=== PATIENT | female | born 1960 | race Caucasian/White ===

== ENCOUNTER 2017-01-30 15:16 | Observation (INO) ==
[2017-01-30 15:49] LABS: Basophils % 0.3 %; Eosinophils # 0.2 K/mcL (0.0-0.6); Hematocrit 41.6 % (35.3-44.9); Hemoglobin 14.4 g/dL (11.5-15.4); Immature Granulocytes % 0.8 % (0-4); Lymphocytes # 2.8 K/mcL (0.6-4.6); Lymphocytes % 31.8 %; Mean Corpuscular HGB Conc 34.6 g/dL (31.6-35.5); Mean Corpuscular Hemoglobin 28.9 pg (28.0-33.3); Mean Corpuscular Volume 83.4 fL (83.0-100.0); Mean Platelet Volume 10.9 fL (9.4-12.4); Monocytes # 0.9 K/mcL (0.0-1.3); Monocytes % 10.2 %; Neutrophils # 4.8 K/mcL (1.6-8.9); Platelet Count 274 K/mcL (140-400); Red Blood Count 4.99 M/mcL (3.82-4.97); Red Cell Distribution Width 13.2 % (11.5-14.5); Segmented Neutrophils % 54.9 %
[2017-01-30 15:54] LABS: Prothrombin Time 10.5 Seconds (9.4-12.1)
[2017-01-30 15:57] LABS: Activated Partial Thrombo Time 28.1 Seconds (26.0-36.0)
[2017-01-30 16:01] LABS: BUN/Creatinine Ratio 19 (6-26); Blood Urea Nitrogen 16 mg/dL (7-20); Calcium 9.2 mg/dL (8.6-10.8); Carbon Dioxide 27 mEq/L (19-29); Chloride 97 mEq/L (98-109); Glucose 102 mg/dL (70-99); Osmolality,Calculated 281 (280-300); Potassium 3.6 mEq/L (3.5-4.5); Sodium 135 mEq/L (136-145); eGFR For African Americans > 60 (> 60); eGFR For Non-African Americans > 60 (> 60)
--- NOTE | 2017-01-30 16:26 | Emergency Department Note ---
Disposition Clinical Impression: Chest pain Qualifiers: Chest pain type: unspecified Qualified Code(s): R07.9 - Chest pain, unspecified Disposition: Admitted As Inpatient Condition: Fair Referrals: John Gonsales MD [Primary Care Provider] - Forms: ED Satisfaction Letter Time of Disposition: 18:15 Chest Pain HPI - General Chief Complaint: ED Chest Pain Stated Complaint: Chest pain/ZURI Time Seen by Provider: 01/30/17 15:36 Source: patient Limitations: no limitations Vital Signs Reviewed: Yes Nursing Notes Reviewed: Yes - History of Present Illness HPI Narrative: Presents with chest pain which started at 2:30 and began over times been of 3 minutes while she was at home and sharp and squeezing with radiation to the anterior neck. Minimal radiation also to the back. Did have sensation of left arm numbness which was transient. No numbness of the leg or face, slurred speech, facial droop or confusion. She did have dyspnea but no diaphoresis. No pleuritic aspect. No pain or swelling of the lower extremities. Social history: No smoking, alcohol, drugs. Family history: Positive for heart disease with her mother with coronary disease as well as cardiomegaly Severity scale (1-10): 3 - Related Data Home Medications Medication Instructions Recorded Confirmed ARIPiprazole [Abilify] 2 mg PO HS 06/06/16 01/30/17 Albuterol Sulfate [Proair Hfa] 2 puff IH Q6H PRN 06/06/16 01/30/17 FLUoxetine HCl [Prozac] 40 mg PO QAM 06/06/16 01/30/17 Fluticasone Propionate Nasal 2 spray NS DAILY PRN 06/06/16 01/30/17 [Flonase] Furosemide [Lasix] 40 mg PO DAILY 06/06/16 01/30/17 Levothyroxine [Synthroid] 88 mcg PO QAM 06/06/16 01/30/17 Loratadine [Claritin] 10 mg PO DAILY 06/06/16 01/30/17 Montelukast [Singulair] 10 mg PO HS 06/06/16 01/30/17 Pantoprazole Sodium [Protonix] 40 mg PO DAILY 06/06/16 01/30/17 Potassium Chloride [K-Tab ER] 20 meq PO DAILY 06/06/16 01/30/17 clonazePAM [Klonopin] 1 mg PO DAILY PRN 06/06/16 01/30/17 BuPROPion SR (12 HR) [Wellbutrin 150 mg PO DAILY 01/30/17 01/30/17 SR] Carvedilol 12.5 mg PO BID 01/30/17 01/30/17 Losartan/Hydrochlorothiazide 1 each PO DAILY 01/30/17 01/30/17 [Hyzaar 100-25 Tablet] Allergies Allergy/AdvReac Type Severity Reaction Status Date / Time azithromycin [From Zithromax] Allergy Rash Verified 06/06/16 08:57 Penicillins [PCN] Allergy Rash Verified 06/06/16 08:57 Tetracycline Allergy Rash Verified 06/06/16 08:57 Review of Systems: Constitutional: No fever Vision: No blurred vision ENT: No rhinorrhea Respiratory: No cough Allergic: No allergies : No blood in urine GI: No blood in stool Hematologic: No bruising Dermatologic: No skin rash Musculoskeletal: No pain in the extremities Neuro: No numbness of the extremities Chest Pain PMH - Past Medical History Medical history: Reports: GERD, hypertension Psychiatric history: Reports: depression [employer]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 - Social History Smoking Status: Never smoker Alcohol use: Reports: occasionally Drug use: Reports: none Physical Exam CONSTITUTIONAL: Well-appearing; well-nourished; A&O X 3, in no apparent distress HEAD: Normocephalic; atraumatic EYES: PERRL, no scleral icterus NOSE: The nose is normal in appearance without rhinorrhea NECK: No JVD or distended neck veins RESP: Normal chest excursion with respiration; breath sounds clear and equal bilaterally; no wheezes, rhonchi, or rales CARD: Regular rhythm, without murmurs, rub or gallop ABD: Non-distended; non-tender, soft, without rigidity, rebound or guarding,no pulsatile mass CHEST: No pain with palpation SKIN: Normal for age and race; warm and dry without diaphoresis ; no apparent lesions EXTREMITIES: Pulses are 2 plus and equal times 4 extremities, no peripheral edema or calf muscle pain NEUROLOGICAL: Patient is alert and oriented times three. Cranial nerves III- XII are intact. Sensory and motor functions are intact. Strength is 5/5 for flexion and extension in all 4 extremities. Patellar DTRS are equal and intact. Finger to nose testing is equal and normal bilaterally. - General Limitations: no limitations General appearance: alert, in no apparent distress Course Vital Signs Temperature 98.5 F 01/30/17 15:17 Pulse Rate 91 01/30/17 15:17 Respiratory Rate 18 01/30/17 15:17 Blood Pressure 190/98 01/30/17 15:17 O2 Sat by Pulse Oximetry 98 01/30/17 15:17 Temperature 98.5 F 01/30/17 15:17 Pulse Rate 81 01/30/17 16:51 Respiratory Rate 18 01/30/17 16:51 Blood Pressure 124/85 01/30/17 16:51 O2 Sat by Pulse Oximetry 98 01/30/17 16:51 Oxygen Delivery Oxygen Delivery Room Air Chest Pain - MDM Narrative Medical decision making narrative: I did review the patient's initial labs which are non-concerning. She did have the arm numbness as well as some radiation to the back and a CT scan will be done to further evaluate for possible aortic dissection. The patient is hypertensive at this time and is not hypotensive. I did review her EKG showing normal sinus rhythm with a rate of 86 without acute ischemic change or evidence of arrhythmia. Patient will be watched closely here in the emergency department and admitted as she does have short duration of symptoms which historically or very concerning and the troponin may not have had time to increase. [id number] I did review the patient's lab results which are negative as well as chest x- ray and the CTA which are both read by the radiologist as being negative and the patient will be admitted. I did speak with the hospitalist who accepts the patient for admission. Concern is recent onset of chest pain and inability to exclude myocardial infarction based on the ED evaluation. She does have a very concerning story also. 1814 - Medical Records Medical records reviewed: Yes I reviewed the patient's medical records. - Lab Data Lab results reviewed: Yes I reviewed the patient's lab results. Result diagrams: 01/30/17 15:40 01/30/17 15:40 Lab Results 01/30/17 01/30/17 01/30/17 Range/Units 15:40 15:40 15:40 WBC 8.7 (4.3-11.1) K/mcL RBC 4.99 H (3.82-4.97) M/mcL Hgb 14.4 (11.5-15.4) g/dL Hct 41.6 (35.3-44.9) % MCV 83.4 (83.0-100.0) fL MCH 28.9 (28.0-33.3) pg MCHC 34.6 (31.6-35.5) g/dL RDW 13.2 (11.5-14.5) % Plt Count 274 (140-400) K/mcL MPV 10.9 (9.4-12.4) fL Immature Gran % 0.8 (0-4) % Seg Neutrophils % 54.9 % Lymphocytes % 31.8 % Monocytes % 10.2 % Eosinophils % 2.0 % Basophils % 0.3 % Neutrophils # 4.8 (1.6-8.9) K/mcL Lymphocytes # 2.8 (0.6-4.6) K/mcL Monocytes # 0.9 (0.0-1.3) K/mcL Eosinophils # 0.2 (0.0-0.6) K/mcL Basophils # 0.0 (0.0-0.2) K/mcL PT 10.5 (9.4-12.1) Seconds INR 1.0 APTT 28.1 (26.0-36.0) Seconds Sodium 135 L (136-145) mEq/L Potassium 3.6 (3.5-4.5) mEq/L Chloride 97 L (98-109) mEq/L Carbon Dioxide 27 (19-29) mEq/L BUN 16 (7-20) mg/dL Creatinine 0.86 (0.57-1.11) mg/dL Est GFR ( Amer) > 60 (> 60) Est GFR (Non-Af Amer) > 60 (> 60) BUN/Creatinine Ratio 19 (6-26) Glucose 102 H (70-99) mg/dL Calculated Osmolality 281 (280-300) Calcium 9.2 (8.6-10.8) mg/dL Troponin I (0-0.03) ng/mL 01/30/17 Range/Units 15:40 WBC (4.3-11.1) K/mcL RBC (3.82-4.97) M/mcL Hgb (11.5-15.4) g/dL Hct (35.3-44.9) % MCV (83.0-100.0) fL MCH (28.0-33.3) pg MCHC (31.6-35.5) g/dL RDW (11.5-14.5) % Plt Count (140-400) K/mcL MPV (9.4-12.4) fL Immature Gran % (0-4) % Seg Neutrophils % % Lymphocytes % % Monocytes % % Eosinophils % % Basophils % % Neutrophils # (1.6-8.9) K/mcL Lymphocytes # (0.6-4.6) K/mcL Monocytes # (0.0-1.3) K/mcL Eosinophils # (0.0-0.6) K/mcL Basophils # (0.0-0.2) K/mcL PT (9.4-12.1) Seconds INR APTT (26.0-36.0) Seconds Sodium (136-145) mEq/L Potassium (3.5-4.5) mEq/L Chloride (98-109) mEq/L Carbon Dioxide (19-29) mEq/L BUN (7-20) mg/dL Creatinine (0.57-1.11) mg/dL Est GFR ( Amer) (> 60) Est GFR (Non-Af Amer) (> 60) BUN/Creatinine Ratio (6-26) Glucose (70-99) mg/dL Calculated Osmolality (280-300) Calcium (8.6-10.8) mg/dL Troponin I 0.00 (0-0.03) ng/mL - Radiology Data Radiology results reviewed: Yes I reviewed the patient's radiology results.
[2017-01-30] MEDS ORDERED: clonazePAM 1 MG TABLET PO PRN (20:18)
[2017-01-30] MEDS ORDERED: Fluticasone Propionate Nasal 50 MCG/SPRAY BOTTLE NS PRN (20:18)
[2017-01-30] MEDS ORDERED: Ondansetron 4 MG/2 ML VIAL IVP PRN (20:21)
[2017-01-30] MEDS ORDERED: Naloxone 0.4 MG/ML INJ IVP PRN (20:21)
[2017-01-30] MEDS ORDERED: *HR* Morphine 2 MG/ML SYRINGE IVP PRN (20:21)
[2017-01-30] MEDS ORDERED: Nitroglycerin 0.4 MG TAB.SUBL SL PRN (20:22)
--- NOTE | 2017-01-30 20:27 | Internal Med History&Physical ---
Date of Encounter: 01/30/17 Time of Encounter: 20:24 Assessment and Plan (1) Chest pain Current visit: Yes Status: Acute Order aspirin, monitor troponins, telemetry Echocardiogram Hold carvedilol for exercise a stress test in the past, she says that she did not want to have the pharmacological stress test. Consider cardiology consult if positive findings Morphine and nitroglycerin for pain, check lipid panel Omeprazole for GI prophylaxis and Lovenox for DVT prophylaxis. The patient will be admitted for observation. Full code. Time spent on this admission 40 minutes Qualifiers: Chest pain type: unspecified Qualified Code(s): R07.9 - Chest pain, unspecified (2) Depression Current visit: Yes Status: Acute Continue home meds Qualifiers: Depression Type: unspecified Qualified Code(s): F32.9 - Major depressive disorder, single episode, unspecified (3) Anxiety Current visit: Yes Status: Acute (4) GERD (gastroesophageal reflux disease) Current visit: Yes Status: Acute PPI Qualifiers: Esophagitis presence: without esophagitis Qualified Code(s): K21.9 - Gastro -esophageal reflux disease without esophagitis (5) Hypertension Current visit: Yes Status: Acute Accelerated hypertension Continue losartan, hydrochlorothiazide Add hydralazine IV as needed Qualifiers: Hypertension type: essential hypertension Qualified Code(s): I10 - Essential (primary) hypertension Internal Medicine - H&P: HPI Chief complaint: Chest pain Admitted From: Emergency Dept History of present illness: Ms. Granger is a 56 year old female with a past medical history of hypertension, anxiety, depression who came to the emergency room complaining of chest pain that started earlier at 2:30 PM and lasted for about an hour. He was described as 7 out of 10 in intensity sharp and squeezing like radiating to the neck and the back. CT angiogram of the chest was performed and did not show any dissection. Sodium is 135, troponins and electrocardiogram are unremarkable. Blood pressure was 190/98 she says that she has been compliant with her blood pressure medication. Still has some discomfort. Denies any other complaints Past Med Surg Social Fam HX - Past Medical History Medical history: GERD, hypertension, other (Anxiety, carpal tunnel, colonic polyps, hypothyroidism) Psychiatric history: depression - Past Surgical History Surgical History: cholecystectomy, other (Tubal ligation) - Social History Smoking Status: Never smoker Smokeless Tobacco Status: No Alcohol use: occasionally Drug use: none - Family History Father Hx Family Cancer: Yes (lung) Mother Hx Family Cardiac Disorders: Yes (HTN, cardiomegaly) - Additional Family History Additional family history: Father with lung cancer, sister with hypertension and CVA, mother with diabetes breast cancer and first myocardial infarction at the age of 50 Internal Medicine - H&P: Meds ARIPiprazole [Abilify] 2 mg PO HS 06/06/16 [History] Albuterol Sulfate [Proair Hfa] 2 puff IH Q6H PRN 06/06/16 [History] FLUoxetine HCl [Prozac] 40 mg PO QAM 06/06/16 [History] Fluticasone Propionate Nasal [Flonase] 2 spray NS DAILY PRN 06/06/16 [History] Furosemide [Lasix] 40 mg PO DAILY 06/06/16 [History] Levothyroxine [Synthroid] 88 mcg PO QAM 06/06/16 [History] Loratadine [Claritin] 10 mg PO DAILY 06/06/16 [History] Montelukast [Singulair] 10 mg PO HS 06/06/16 [History] Pantoprazole Sodium [Protonix] 40 mg PO DAILY 06/06/16 [History] Potassium Chloride [K-Tab ER] 20 meq PO DAILY 06/06/16 [History] clonazePAM [Klonopin] 1 mg PO DAILY PRN 06/06/16 [History] BuPROPion SR (12 HR) [Wellbutrin SR] 150 mg PO DAILY 01/30/17 [History] Carvedilol 12.5 mg PO BID 01/30/17 [History] Losartan/Hydrochlorothiazide [Hyzaar 100-25 Tablet] 1 each PO DAILY 01/30/17 [ History] 3 Allergy/AdvReac Type Severity Reaction Status Date / Time azithromycin [From Zithromax] Allergy Rash Verified 06/06/16 08:57 Penicillins [PCN] Allergy Rash Verified 06/06/16 08:57 Tetracycline Allergy Rash Verified 06/06/16 08:57 All Systems PM: A 10-system review of systems was performed and is negative for pertinent findings except as documented above in the HPI. Review of systems: No shortness of breath, no weakness, no dysuria, other systems out of the 10 review were negative - Constitutional Vitals: Temp Pulse Resp BP Pulse Ox 97.8 F 82 16 153/94 95 01/30/17 20:01 01/30/17 20:01 01/30/17 20:01 01/30/17 20:01 01/30/17 20:01 General appearance: Present: A&O X 3 - Head Head exam: Present: atraumatic, normocephalic - Eye Eye exam: Present: PERRL, conjuntiva pink, sclera anicteric Pupils: Present: PERRL - Neck Neck exam general surgery: Present: supple, trachea midline. Absent: lymphadenopathy - Respiratory Respiratory exam: Present: CTAB. Absent: accessory muscle use, rales, rhonchi, wheezes - Cardiovascular Cardiovascular exam: Present: RRR, +S1, +S2. Absent: diastolic murmur, gallop, rubs, systolic murmur - GI/Abdominal GI/Abdominal exam: Present: normal bowel sounds, soft, no peritoneal signs. Absent: distended, tenderness - Extremities Exam Extremities exam: Present: warm, radial pulses palpable and symmetrical. Absent : calf tenderness, cyanotic, pedal edema - Neurological Exam Neurological exam: Present: CN II-XII intact, oriented X3, no focal deficits. Absent: pronater drift, facial droop, speech deficit - Skin Skin exam: Present: dry, intact Internal Med - H&P Results - Labs CBC & Chem 7: 01/30/17 15:40 01/30/17 15:40
[2017-01-30] MEDS: *HR* Enoxaparin 40 MG/0.4 ML SYRINGE SQ SCH (21:31)
[2017-01-30] MEDS: ARIPiprazole 2 MG TABLET PO SCH (21:33)
[2017-01-30] MEDS: Aspirin Enteric Coated 81 MG Tablet PO SCH (21:33)
[2017-01-30] MEDS: Losartan/HCTZ 50-12.5 TABLET PO SCH (21:33)
[2017-01-31 03:39] LABS: BUN/Creatinine Ratio 19 (6-26); Blood Urea Nitrogen 17 mg/dL (7-20); Calcium 9.4 mg/dL (8.6-10.8); Carbon Dioxide 29 mEq/L (19-29); Chloride 100 mEq/L (98-109); Chol/HDL Ratio 5.4 (0-4.9); Cholesterol 198 mg/dL (< 200); Glucose 108 mg/dL (70-99); HDL Cholesterol 37 mg/dL (40-59); Osmolality,Calculated 288 (280-300); Potassium 3.8 mEq/L (3.5-4.5); Sodium 138 mEq/L (136-145); Triglycerides 419 mg/dL (< 150); eGFR For African Americans > 60 (> 60); eGFR For Non-African Americans > 60 (> 60)
[2017-01-31] MEDS: *HR* Enoxaparin 40 MG/0.4 ML SYRINGE SQ SCH (05:58)
[2017-01-31] MEDS ORDERED: Regadenoson 0.4 MG/5 ML SYRINGE IVP ONE (06:21)
[2017-01-31] MEDS: BuPROPion SR (12 HR) 150 MG TABLET PO SCH (10:29)
[2017-01-31] MEDS: Losartan/HCTZ 50-12.5 TABLET PO SCH (10:29)
[2017-01-31] MEDS: Furosemide 40 MG TABLET PO SCH (10:29)
[2017-01-31] MEDS: FLUoxetine 20 MG CAPSULE PO SCH (10:29)
[2017-01-31] MEDS: Aspirin Enteric Coated 81 MG Tablet PO SCH (10:29)
[2017-01-31] MEDS: Acetaminophen 325 MG TABLET PO PRN ×2 (10:38→20:43)
--- NOTE | 2017-01-31 15:59 | Internal Med Progress Note ---
Date of Encounter: 01/31/17 Time of Encounter: 16:04 - Assessment and plan (1) Chest pain Current Visit: Yes Status: Acute Assessment and plan: Alejandra Granger is a 56-year-old female with past medical history depression, hypertension and hypothyroidism who presented to [facility] on 01/30/2017 with complaints of chest pain. She was placed in observation status for ACS rule out. 1. Chest pain: On day of presentation. Episode lasted approximately 1 hour and chest pain resolved spontaneously. No known cardiac disease. Serial troponins negative. EKG without acute ST changes. Cardiac risk factors include hyperlipidemia and hypertension. Stress test 02/01. Monitor on telemetry. Consult cardiology if needed. Continue ASA, statin 2. Hypertriglyceridemia: Triglycerides 419, start fenofibrate. Strongly encouraged dietary changes. 3. Hypertension: per hx. BP uncontrolled on arrival, now improved. Continue home BP medications. Monitor BP and titrate PRN 4. Hypothyrodism: per hx. Cont home levothyroxine. 5. Depression: per hx. Cont home Abilify, Wellbutrin, Klonopin, 6. DVT prophylaxis: Lovenox Qualifiers: Chest pain type: unspecified Qualified Code(s): R07.9 - Chest pain, unspecified (2) Hypertriglyceridemia Current Visit: Yes Status: Acute (3) Depression Current Visit: Yes Status: Acute Qualifiers: Depression Type: unspecified Qualified Code(s): F32.9 - Major depressive disorder, single episode, unspecified (4) Hypertension Current Visit: Yes Status: Acute Qualifiers: Hypertension type: essential hypertension Qualified Code(s): I10 - Essential (primary) hypertension - Subjective Interval history: Seen and examined at bedside, patient says she feel well, has no chest pain. No SOB - Constitutional Vitals: Temp Pulse Resp BP Pulse Ox 98 F 88 17 153/83 93 01/31/17 10:13 01/31/17 10:13 01/31/17 10:13 01/31/17 10:13 01/31/17 10:13 General appearance: Present: A&O X 3 - Head Head exam: Present: atraumatic, normocephalic - Eye Eye exam: Present: PERRL, conjuntiva pink, sclera anicteric Pupils: Present: PERRL - Neck Neck exam general surgery: Present: supple, trachea midline. Absent: lymphadenopathy - Respiratory Respiratory exam: Present: CTAB. Absent: accessory muscle use, rales, rhonchi, wheezes - Cardiovascular Cardiovascular exam: Present: RRR, +S1, +S2. Absent: diastolic murmur, gallop, rubs, systolic murmur - GI/Abdominal GI/Abdominal exam: Present: normal bowel sounds, soft, no peritoneal signs. Absent: distended, tenderness - Extremities Exam Extremities exam: Present: warm, radial pulses palpable and symmetrical. Absent : calf tenderness, cyanotic, pedal edema - Neurological Exam Neurological exam: Present: CN II-XII intact, oriented X3, no focal deficits. Absent: pronater drift, facial droop, speech deficit - Skin Skin exam: Present: dry, intact Internal Medicine: Result - Labs CBC & Chem 7: 01/30/17 15:40 01/31/17 02:38 Labs: BMP 01/31/17 02:38 Sodium 138 Potassium 3.8 Chloride 100 Carbon Dioxide 29 BUN 17 Creatinine 0.88 Glucose 108 H Calcium 9.4 Cardiac Enzymes 01/30/17 01/31/17 01/31/17 Range/Units 21:15 02:38 09:27 Troponin I 0.00 0.00 0.00 (0-0.03) ng/mL - ABG Interpretation ABG results: PT/INR, D-dimer PT 10.5 Seconds (9.4-12.1) 01/30/17 15:40 - Impressions Impressions Echocardiogram 01/31/17 20:19 Impressions: LVEF 65%. Mild left ventricular diastolic dysfunction. Normal right ventricular structure and function. Mild mitral regurgitation. No pulmonary hypertension. Left Ventricular Wall Motion: Rest Echo Findings All wall segments showed normal motion. Findings: Study Quality * Technically adequate exam. ECG Findings * Normal sinus rhythm. Left Ventricle * LVEF 65%. * Mild left ventricular diastolic dysfunction. * Normal LV size and wall thickness. Right Ventricle * Normal right ventricular structure and function. Left Atrium * Normal left atrial size. Right Atrium * Normal right atrial size. Aortic Valve * No aortic regurgitation. * Trileaflet aortic valve. * Normal aortic valve structure. * No aortic stenosis. Mitral Valve * No mitral stenosis. * Mild mitral regurgitation. * Normal mitral valve structure. Tricuspid Valve * Normal tricuspid valve structure. * Trace tricuspid regurgitation. Pulmonic Valve * Pulmonic valve is not well visualized. * No pulmonic stenosis. * No pulmonic regurgitation. Pulmonary Artery * Pulmonary artery not well visualized. Aorta * Normally sized aortic root. Pericardium * There is no pericardial effusion present. Interatrial Septum * No evidence of PFO by color Doppler. IVC * The IVC is not well evaluated. Consult Discharge Plan - Plan Referrals: John Gonsales MD [Primary Care Provider] - 02/05/17 3:00 pm
[2017-01-31] MEDS: ARIPiprazole 2 MG TABLET PO SCH (20:40)
[2017-02-01 04:51] LABS: Hematocrit 44.1 % (35.3-44.9); Mean Corpuscular Hemoglobin 28.5 pg (28.0-33.3); Mean Corpuscular Volume 83.8 fL (83.0-100.0); Mean Platelet Volume 10.7 fL (9.4-12.4); Platelet Count 258 K/mcL (140-400); Red Blood Count 5.26 M/mcL (3.82-4.97); Red Cell Distribution Width 13.3 % (11.5-14.5)
[2017-02-01 05:08] LABS: BUN/Creatinine Ratio 20 (6-26); Blood Urea Nitrogen 19 mg/dL (7-20); Calcium 9.7 mg/dL (8.6-10.8); Carbon Dioxide 28 mEq/L (19-29); Chloride 98 mEq/L (98-109); Glucose 114 mg/dL (70-99); Osmolality,Calculated 287 (280-300); Potassium 3.6 mEq/L (3.5-4.5); Sodium 137 mEq/L (136-145); eGFR For African Americans > 60 (> 60); eGFR For Non-African Americans > 60 (> 60)
[2017-02-01] MEDS: *HR* Enoxaparin 40 MG/0.4 ML SYRINGE SQ SCH (06:07)
[2017-02-01] MEDS ORDERED: Fenofibrate 54 MG TABLET PO SCH (09:00)
[2017-02-01] MEDS: FLUoxetine 20 MG CAPSULE PO SCH (10:16)
[2017-02-01] MEDS: Losartan/HCTZ 50-12.5 TABLET PO SCH (10:20)
[2017-02-01] MEDS: Aspirin Enteric Coated 81 MG Tablet PO SCH (10:21)
[2017-02-01] MEDS: Furosemide 40 MG TABLET PO SCH (10:21)
[2017-02-01] MEDS: BuPROPion SR (12 HR) 150 MG TABLET PO SCH (10:21)
[2017-02-01 10:59] VITALS: BP 152/85
--- NOTE | 2017-02-01 11:04 | Electrocardiograph Report ---
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
--- NOTE | 2017-02-01 12:55 | Discharge Summary ---
Date of Encounter: 02/01/17 Time of Encounter: 12:44 - Discharge Diagnosis (1) Chest pain Priority: Primary Status: Resolved Comments: Alejandra Granger is a 56-year-old female with past medical history depression, hypertension and hypothyroidism who presented to [facility] on 01/30/2017 with complaints of chest pain. She was placed in observation status for ACS rule out. 1. Chest pain: On day of presentation. Episode lasted approximately 1 hour and resolved spontaneously. No known cardiac disease. Serial troponins negative. EKG without acute ST changes. TTE with EF 65%, mild diastolic dysfunction, no wall motion abnormalities. Nuclear stress test negative for ischemia or infarct. Etiology unknown, chest pain possibly secondary to stress/ anxiety as she was at work when chest pain occurred and does have known anxiety. Recommend continuing ASA, lipitor with multiple cardiac risk factors. 2. Hypertriglyceridemia: Triglycerides 419. Fenofibrate started. Strongly encouraged dietary changes. 3. Hypertension: per hx. BP uncontrolled on arrival, likely due to stress/ anxiety. BP now improved. Continue home BP medications. 4. Hypothyrodism: per hx. Cont home levothyroxine. 5. Depression: with anxiety. Cont home Abilify, Wellbutrin, Klonopin, Qualifiers: Chest pain type: unspecified Qualified Code(s): R07.9 - Chest pain, unspecified (2) Hypertriglyceridemia Priority: Primary Status: Acute (3) Depression Priority: Primary Status: Acute Qualifiers: Depression Type: unspecified Qualified Code(s): F32.9 - Major depressive disorder, single episode, unspecified (4) Hypertension Priority: Primary Status: Acute Qualifiers: Hypertension type: essential hypertension Qualified Code(s): I10 - Essential (primary) hypertension - Discharge Medications Prescriptions: Aspirin Enteric Coated [Aspirin EC] 81 mg PO DAILY #30 tablet. Atorvastatin [Lipitor] 20 mg PO HS #30 tablet Fenofibrate [Tricor] 162 mg PO DAILY #30 tablet Home Medications: ARIPiprazole [Abilify] 2 mg PO HS 06/06/16 [History] Albuterol Sulfate [Proair Hfa] 2 puff IH Q6H PRN 06/06/16 [History] FLUoxetine HCl [Prozac] 40 mg PO QAM 06/06/16 [History] Fluticasone Propionate Nasal [Flonase] 2 spray NS DAILY PRN 06/06/16 [History] Furosemide [Lasix] 40 mg PO DAILY 06/06/16 [History] Levothyroxine [Synthroid] 88 mcg PO QAM 06/06/16 [History] Loratadine [Claritin] 10 mg PO DAILY 06/06/16 [History] Montelukast [Singulair] 10 mg PO HS 06/06/16 [History] Pantoprazole Sodium [Protonix] 40 mg PO DAILY 06/06/16 [History] Potassium Chloride [K-Tab ER] 20 meq PO DAILY 06/06/16 [History] clonazePAM [Klonopin] 1 mg PO DAILY PRN 06/06/16 [History] BuPROPion SR (12 HR) [Wellbutrin SR] 150 mg PO DAILY 01/30/17 [History] Carvedilol 12.5 mg PO BID 01/30/17 [History] Losartan/Hydrochlorothiazide [Hyzaar 100-25 Tablet] 1 each PO DAILY 01/30/17 [ History] Aspirin Enteric Coated [Aspirin EC] 81 mg PO DAILY #30 tablet. 02/01/17 [Rx] Atorvastatin [Lipitor] 20 mg PO HS #30 tablet 02/01/17 [Rx] Fenofibrate [Tricor] 162 mg PO DAILY #30 tablet 02/01/17 [Rx] Allergies/Adverse Reactions: 3 Allergy/AdvReac Type Severity Reaction Status Date / Time azithromycin [From Zithromax] Allergy Rash Verified 06/06/16 08:57 Penicillins [PCN] Allergy Rash Verified 06/06/16 08:57 Tetracycline Allergy Rash Verified 06/06/16 08:57 Procedures/tests Complete & Pending: Procedures Performed prior 72 hours Category Date Time Status NM mandeep perf SPECT multi [NM] Routine Exams 01/30/17 20:20 Taken EKG [ECG 12 lead ECG] [ECG] Routine Y 01/31/17 17:31 Ordered EV echocardiogram Routine Y 01/31/17 20:19 Completed SP exercise nuclear stress Routine Y 01/31/17 07:20 Completed Date of admission: 01/30/17 18:24 Primary care physician: John Gonsales MD Discharging clinician: Lina Marte Anticipated date of discharge: 02/01/17 - Patient Status Disposition: Home, Self-Care Condition: Good Functional capacity at discharge: independent ambulation Overall status at discharge: patient is back to baseline - Discharge Instructions Instructions: Fenofibrate (By mouth), Hypertension (DC), Aspirin (By mouth), Atorvastatin (By mouth), Heart Healthy Diet (DC) Follow Up With: John Gonsales MD [Primary Care Provider] - 02/05/17 3:00 pm - Diet and Activity Activity: increase activity as tolerated Diet: low fat, low cholesterol Interval History: Seen and examined at bedside. Patient says she is back to baseline and wants to go home today. No further chest pain recurrence yesterday her overnight. She reports feeling like she had a few PVCs earlier today which he thinks is related to her anxiety. Discussed with her at length the importance of dietary modifications with high triglycerides. Recommend continuing ASA, statin and fenofibrate. Hospital course: See assessment and plan for hospital course. - Time Spent with Patient Total time spent providing and/or coordinating discharge services: Less than 30 minutes - Constitutional Vitals: Temp Pulse Resp BP Pulse Ox 97.9 F 108 19 152/85 96 02/01/17 10:58 02/01/17 10:58 02/01/17 10:58 02/01/17 10:58 02/01/17 10:58 General appearance: Present: A&O X 3, morbidly obese - Head Head exam: Present: atraumatic, normocephalic - Eye Eye exam: Present: PERRL, conjuntiva pink, sclera anicteric Pupils: Present: PERRL - Neck Neck exam general surgery: Present: supple, trachea midline. Absent: lymphadenopathy - Respiratory Respiratory exam: Present: CTAB. Absent: accessory muscle use, rales, rhonchi, wheezes - Cardiovascular Cardiovascular exam: Present: RRR, +S1, +S2. Absent: diastolic murmur, gallop, rubs, systolic murmur - GI/Abdominal GI/Abdominal exam: Present: normal bowel sounds, soft, no peritoneal signs. Absent: distended, tenderness - Extremities Exam Extremities exam: Present: warm, radial pulses palpable and symmetrical. Absent : calf tenderness, cyanotic, pedal edema - Neurological Exam Neurological exam: Present: CN II-XII intact, oriented X3, no focal deficits. Absent: pronater drift, facial droop, speech deficit - Skin Skin exam: Present: dry, intact
--- NOTE | 2017-02-03 09:24 | Electrocardiograph Report ---
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
== END 2017-02-01 14:35 | disposition home or self-care (01) ==
LOC: EMEROO 15:16 → 3BNU 15:16
PROVIDERS: ADMIT Hospitalist; ATTEND Registered Nurse

== ENCOUNTER 2017-02-07 07:58 | Inpatient (IN) ==
[2017-02-07] MEDS ORDERED: Lidocaine -MPF 1% 2 ML VIAL ID ONE (08:33)
--- NOTE | 2017-02-07 08:42 | Anesthesia Evaluation PreOp ---
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: Other (Anxiety depression) Other Medical History: Thyroid, GERD, Other (Obesity,) Alcohol Use: occasionally Drug use: none Medications and Allergies ARIPiprazole [Abilify] 2 mg PO HS 06/06/16 [History] Albuterol Sulfate [Proair Hfa] 2 puff IH Q6H PRN 06/06/16 [History] FLUoxetine HCl [Prozac] 40 mg PO QAM 06/06/16 [History] Fluticasone Propionate Nasal [Flonase] 2 spray NS DAILY PRN 06/06/16 [History] Furosemide [Lasix] 40 mg PO DAILY 06/06/16 [History] Levothyroxine [Synthroid] 88 mcg PO QAM 06/06/16 [History] Loratadine [Claritin] 10 mg PO DAILY 06/06/16 [History] Montelukast [Singulair] 10 mg PO HS 06/06/16 [History] Pantoprazole Sodium [Protonix] 40 mg PO DAILY 06/06/16 [History] Potassium Chloride [K-Tab ER] 20 meq PO DAILY 06/06/16 [History] clonazePAM [Klonopin] 1 mg PO DAILY PRN 06/06/16 [History] BuPROPion SR (12 HR) [Wellbutrin SR] 150 mg PO DAILY 01/30/17 [History] Carvedilol 12.5 mg PO BID 01/30/17 [History] Losartan/Hydrochlorothiazide [Hyzaar 100-25 Tablet] 1 each PO DAILY 01/30/17 [ History] Aspirin Enteric Coated [Aspirin EC] 81 mg PO DAILY #30 tablet. 02/01/17 [Rx] Atorvastatin [Lipitor] 20 mg PO HS #30 tablet 02/01/17 [Rx] Fenofibrate [Tricor] 162 mg PO DAILY #30 tablet 02/01/17 [Rx] 3 Allergy/AdvReac Type Severity Reaction Status Date / Time azithromycin [From Zithromax] Allergy Rash Verified 02/07/17 09:07 Penicillins [PCN] Allergy Rash Verified 02/07/17 09:07 Tetracycline Allergy Rash Verified 02/07/17 09:07 - Meds/Allergy Pre-op Review Medications Reviewed: Yes Allergies Reviewed: Yes Beta Blockers on Current Med List: Yes Anesthesia Results - Labs Laboratory Tests 01/30/17 02/01/17 02/01/17 15:40 04:38 04:38 Hgb 15.0 Hct 44.1 Plt Count 258 PT 10.5 INR 1.0 APTT 28.1 Sodium 137 Potassium 3.6 BUN 19 Creatinine 0.95 Glucose 114 H Calcium 9.7 - Imaging Additional studies: ECHO 01/31/2017: LVEF 65%. Mild left ventricular diastolic dysfunction. Normal right ventricular structure and function. Mild mitral regurgitation. No pulmonary hypertension. STRESS TEST 01/31/2017: Exercise ECG is negative for ischemia. Chest discomfort reported during exercise. Gated EF > 70%. Perfusion imaging was negative for ischemia or infarct. Anesthesia Exam Vital Signs/O2 Sat/Glucose, Most Recent Temp Pulse Resp BP Pulse Ox 98.6 F 80 18 130/76 96 02/07/17 08:24 02/07/17 08:24 02/07/17 08:24 02/07/17 08:24 02/07/17 08:24 Height: 5' 4" Weight: 103 Kg BMI 39 - HEENT Mallampati: I Teeth: Normal Oral Opening: Greater than 3 - Cardiac Rhythm: Regular - Pulmonary Breath Sounds: bilateral Clear Anesthesia Assess/Plan ASA Score: 3 Modified Cheney Scale for Level of Consciousness: Cooperative, oriented, and tranquil Anesthetic Plan: General Monitoring Plan: Standard Monitors Recovery Plan: Other (JEHOVAH WITNESS - REFUSES BLOOD TRANSFUSION) Anes Supervising Prov Stmt: I have participated in the evaluation of this patient. Patient informed and consented. Risks, benefits, and alternatives discussed. Patient wishes to proceed.
[2017-02-07] MEDS ORDERED: Ringers Solution, Lactated 1,000 ML IVC SCH (08:45)
[2017-02-07] MEDS ORDERED: *HR* Midazolam HCl 2 MG/2 ML VIAL ONE (09:00)
[2017-02-07] MEDS ORDERED: *HR* Propofol 200 MG/20 ML VIAL IVP ONE (09:00)
[2017-02-07] MEDS ORDERED: *HR* Rocuronium Bromide 50 MG/5 ML VIAL ONE ×2 (09:03→11:42)
[2017-02-07] MEDS ORDERED: *HR* Succinylcholine 200 MG/10 ML VIAL IVP ONE (09:03)
[2017-02-07] MEDS ORDERED: Dexamethasone 4 MG/ML VIAL ONE (09:03)
[2017-02-07] MEDS ORDERED: Lidocaine -MPF 4% 5 ML AMPUL ONE (09:03)
[2017-02-07] MEDS ORDERED: Lidocaine -MPF 2% 2 ML VIAL ONE (09:03)
[2017-02-07] MEDS ORDERED: *HR* FentaNYL (PF) 100 MCG/2 ML VIAL ONE ×3 (09:03→11:51)
[2017-02-07] MEDS ORDERED: Ondansetron 4 MG/2 ML VIAL ONE ×2 (09:04→11:47)
[2017-02-07] MEDS ORDERED: Clindamycin 900 MG/50 ML 900 MG/50 ML IV.SOLN IVPB ONE (09:09)
[2017-02-07] MEDS ORDERED: Scopolamine Patch 1.5 MG PATCH.TD72 TD ONE (09:23)
[2017-02-07] MEDS ORDERED: Lidocaine/EPI 1:100k 1% 20 ML VIAL ONE (09:39)
[2017-02-07] MEDS ORDERED: *HR* Phenylephrine 10 MG/ML VIAL ONE (09:43)
--- NOTE | 2017-02-07 09:53 | History & Physical Report ---
Date of Encounter: 02/07/17 Time of Encounter: 09:52 24 Hour HP Update - Instructions Instructions: If the History and Physical is less than 30 days old and was completed prior to A.M. admission and or procedure and has NOT been updated on calendar day of procedure please complete this update prior to performing procedure. - Update Patient reports changes in Medical Condition: No Changes in examination, assessment, or condition: No Changes in Medication: No Preop tests/diagnostics Reviewed: Yes Surgery Remains Indicated: Yes Consent for Planned Operative Procedure(s) Verified: Yes - Pre-Operative Checklist Preoperative Checklist Indicated: Yes Prophylactic Antibiotic Ordered: Yes Home Medications Include Beta Aaron: No Beta Aaron Taken Today (Day of Surgery): No Beta Aaron Taken Yesterday (Day Prior to Surgery): No Is VTE Prophylaxis Indicated?: Yes
[2017-02-07] MEDS ORDERED: Clindamycin 900 MG/50 ML 0 MG/0 ML IV.SOLN IVPB ONE (10:10)
[2017-02-07] MEDS ORDERED: EPHEDrine 50 MG/ML VIAL ONE (10:42)
[2017-02-07] MEDS ORDERED: Neostigmine Methylsulfate 3 MG/3 ML SYRINGE ONE (10:54)
[2017-02-07] MEDS ORDERED: Acetaminophen IV 1,000 MG/100 ML INFUS..BTL ONE (11:04)
[2017-02-07] MEDS ORDERED: Ketorolac 30 MG/ML VIAL ONE (11:55)
[2017-02-07] MEDS ORDERED: Albuterol 2.5 MG/3 ML NEBULIZER IH PRN (13:24)
[2017-02-07] MEDS ORDERED: *HR* Meperidine 25 MG/ML SYRINGE IVP PRN (13:24)
[2017-02-07] MEDS ORDERED: *HR* Promethazine 25 MG/ML VIAL IVP PRN (13:24)
[2017-02-07] MEDS ORDERED: *HR* HYDROmorphone (PF) 1 MG/ML SYRINGE IVP PRN ×2 (13:24→14:31)
[2017-02-07] MEDS ORDERED: *HR* HYDROmorphone (PF) 1 MG/ML SYRINGE ONE ×2 (13:28→14:41)
--- NOTE | 2017-02-07 13:48 | Anesthesia Evaluation Post Op ---
Date of Encounter: 02/07/17 Time of Encounter: 13:47 - Vital Signs Vital Signs: vss - Lungs Lungs: Clear Ascult./Percussion - Airway Airway: Non-obstructed - Cardiovascular Baseline Rhythm - Mental Status Mental Status: Asleep with brisk response to light stimulation - Pain Pain Scale used: Zay (Faces) (resting.) - Nausea Vomiting Nausea Vomiting: Not Present - Hydration Hydration: Ice chips
[2017-02-07] MEDS ORDERED: Fluticasone Propionate Nasal 50 MCG/SPRAY BOTTLE NS PRN (14:23)
[2017-02-07] MEDS ORDERED: Sennosides 8.6 MG TABLET PO PRN (14:23)
[2017-02-07] MEDS ORDERED: Ondansetron 4 MG/2 ML VIAL IVP PRN (14:23)
[2017-02-07] MEDS ORDERED: Naloxone 0.4 MG/ML INJ IVP PRN (14:23)
[2017-02-07] MEDS ORDERED: clonazePAM 1 MG TABLET PO PRN (14:23)
[2017-02-07] MEDS: Ringers Solution, Lactated 1,000 ML IVC SCH (20:25)
[2017-02-07] MEDS ORDERED: ARIPiprazole 2 MG TABLET PO SCH (21:00)
[2017-02-07] MEDS: *HR* OxyCODONE/APAP 5/325 TABLET PO PRN (21:17)
[2017-02-08] MEDS: *HR* OxyCODONE/APAP 5/325 TABLET PO PRN ×2 (01:35→06:08)
[2017-02-08] MEDS: Ringers Solution, Lactated 1,000 ML IVC SCH (04:23)
[2017-02-08 06:54] LABS: Basophils % 0.1 %; Hematocrit 36.1 % (35.3-44.9); Hemoglobin 11.9 g/dL (11.5-15.4); Immature Granulocytes % 0.6 % (0-4); Lymphocytes # 1.5 K/mcL (0.6-4.6); Mean Corpuscular Hemoglobin 28.7 pg (28.0-33.3); Mean Platelet Volume 11.1 fL (9.4-12.4); Monocytes # 0.8 K/mcL (0.0-1.3); Monocytes % 6.2 %; Neutrophils # 10.1 K/mcL (1.6-8.9); Platelet Count 236 K/mcL (140-400); Red Blood Count 4.15 M/mcL (3.82-4.97); Red Cell Distribution Width 13.4 % (11.5-14.5); Segmented Neutrophils % 81.1 %
[2017-02-08] MEDS: Aspirin Enteric Coated 81 MG Tablet PO SCH (08:45)
[2017-02-08] MEDS: Loratadine 10 MG TABLET PO SCH (08:46)
[2017-02-08] MEDS: FLUoxetine 20 MG CAPSULE PO SCH (08:48)
[2017-02-08] MEDS: Furosemide 40 MG TABLET PO SCH (09:01)
--- NOTE | 2017-02-08 09:54 | OB/GYN Progress Note ---
Date of Encounter: 02/08/17 Time of Encounter: 09:51 - Assessment and Plan (1) S/P YUE-BSO Current Visit: Yes Status: Acute Increasing pain medication. Ambulation encouraged. Routine postop care. IV came out this morning, if she is eating and voiding not necessary to replace at this time. Subjective - Subjective Principal diagnosis: HGSIL Interval history: Patient is progressing well. She states her pain is controlled. She denies any nausea or vomiting. She has gotten out of bed and ambulated without difficulty. Patient reports: appetite normal, pain poorly controlled (increased to 10 mg Percocet), ambulating normally, no nauseated Objective - Vital Signs Latest vital signs: Vital Signs Temp Pulse Pulse Resp BP Pulse Ox 02/08/17 07:40 98.1 F 86 16 132/81 02/08/17 04:30 97.8 F 76 16 124/76 92 02/08/17 00:58 98.6 F 89 16 123/68 93 02/07/17 20:15 70 02/07/17 19:20 97.8 F 82 12 143/82 96 02/07/17 17:15 98.2 F 77 16 105/68 96 02/07/17 16:15 97.7 F 75 75 14 108/71 96 02/07/17 15:18 97.7 F 74 74 14 107/62 96 02/07/17 14:46 97.7 F 78 14 114/74 93 02/07/17 14:45 97.7 F 78 14 114/74 93 02/07/17 14:33 82 12 02/07/17 14:15 98.3 F 80 14 113/74 98 02/07/17 13:57 98.2 F 70 17 120/73 98 02/07/17 13:47 98.2 F 85 16 119/73 93 02/07/17 13:37 70 18 136/55 94 02/07/17 13:27 76 13 142/79 94 02/07/17 13:17 98.0 F 75 10 142/101 98 Intake and Output 02/07/17 02/08/17 02/08/17 23:59 07:59 15:59 Intake Total 1000 / 1000 Output Total 150 / 150 900 / 900 Balance -150 / -150 100 / 100 Intake: IV Fluids 1000 / 1000 Lactated Ringers 1,000 ML @ 100 1000 / 1000 mls/hr IVC .Q10H CLAUDIA Rx#: [id number] Oral 0 / 0 Output: Catheter 150 / 150 900 / 900 Other: Stool Characteristics Normal for Patient Normal for Patient Weight 104.6 kg Patient Weight 02/08/17 23:59 Weight 104.6 kg - I&O's I&O's: Intake & Output 02/05/17 02/06/17 02/07/17 02/08/17 23:59 23:59 23:59 23:59 Intake Total 50 / 50 1000 / 1000 Output Total 680 / 680 900 / 900 Balance -630 / -630 100 / 100 Weight 104.2 kg 104.6 kg - Exam Lungs: bilateral: normal Chest: Normal S1, Normal S2 Extremities: Present: normal. Absent: tenderness Abdomen: Present: soft. Absent: distention Incision OB: Present: dry, dressed - Labs Labs: Abnormal lab results WBC 12.5 K/mcL (4.3-11.1) H 02/08/17 06:40 Neutrophils # 10.1 K/mcL (1.6-8.9) H 02/08/17 06:40 - Allied health notes Allied health notes reviewed: nursing Consult Discharge Plan - Plan Referrals: John Gonsales MD [Primary Care Provider] -
[2017-02-08] MEDS: *HR* OxyCODONE/APAP 10/325 TABLET PO PRN ×3 (09:56→18:40)
[2017-02-08] MEDS: Losartan/HCTZ 50-12.5 TABLET PO SCH (09:57)
[2017-02-08] MEDS: Fenofibrate 54 MG TABLET PO SCH (09:58)
[2017-02-08] MEDS: BuPROPion SR (12 HR) 150 MG TABLET PO SCH (09:58)
[2017-02-09] MEDS: *HR* OxyCODONE/APAP 10/325 TABLET PO PRN ×3 (00:40→12:35)
[2017-02-09] MEDS: Aspirin Enteric Coated 81 MG Tablet PO SCH (08:44)
[2017-02-09] MEDS: Loratadine 10 MG TABLET PO SCH (08:45)
[2017-02-09] MEDS: FLUoxetine 20 MG CAPSULE PO SCH (08:45)
[2017-02-09] MEDS ORDERED: MOM Conc 10 ML UD.LIQ PO PRN (09:26)
[2017-02-09] MEDS: Furosemide 40 MG TABLET PO SCH (11:01)
[2017-02-09] MEDS: Losartan/HCTZ 50-12.5 TABLET PO SCH (11:34)
[2017-02-09] MEDS: BuPROPion SR (12 HR) 150 MG TABLET PO SCH (11:35)
[2017-02-09] MEDS: Fenofibrate 54 MG TABLET PO SCH (11:35)
[2017-02-09 12:03] VITALS: BP 118/75
--- NOTE | 2017-02-09 13:02 | Discharge Summary ---
Date of Encounter: 02/09/17 Time of Encounter: 13:01 - Discharge Diagnosis (1) S/P YUE-BSO Priority: Primary Status: Resolved (2) Anxiety Priority: Secondary Status: Chronic (3) Depression Priority: Secondary Status: Chronic Qualifiers: Depression Type: unspecified Qualified Code(s): F32.9 - Major depressive disorder, single episode, unspecified (4) GERD (gastroesophageal reflux disease) Priority: Secondary Status: Chronic Qualifiers: Esophagitis presence: without esophagitis Qualified Code(s): K21.9 - Gastro -esophageal reflux disease without esophagitis (5) Hypertension Priority: Secondary Status: Chronic Qualifiers: Hypertension type: essential hypertension Qualified Code(s): I10 - Essential (primary) hypertension (6) Hypertriglyceridemia Priority: Secondary Status: Chronic - Discharge Medications Prescriptions: OxyCODONE/APAP 10/325 [Percocet 10/325 MG] 1 each PO Q4HR PRN #30 tablet PRN Reason: Moderate Pain Home Medications: ARIPiprazole [Abilify] 2 mg PO HS 06/06/16 [History] Albuterol Sulfate [Proair Hfa] 2 puff IH Q6H PRN 06/06/16 [History] FLUoxetine HCl [Prozac] 40 mg PO QAM 06/06/16 [History] Fluticasone Propionate Nasal [Flonase] 2 spray NS DAILY PRN 06/06/16 [History] Furosemide [Lasix] 40 mg PO DAILY 06/06/16 [History] Levothyroxine [Synthroid] 88 mcg PO QAM 06/06/16 [History] Loratadine [Claritin] 10 mg PO DAILY 06/06/16 [History] Montelukast [Singulair] 10 mg PO HS 06/06/16 [History] Pantoprazole Sodium [Protonix] 40 mg PO DAILY 06/06/16 [History] Potassium Chloride [K-Tab ER] 20 meq PO DAILY 06/06/16 [History] clonazePAM [Klonopin] 1 mg PO DAILY PRN 06/06/16 [History] BuPROPion SR (12 HR) [Wellbutrin SR] 150 mg PO DAILY 01/30/17 [History] Carvedilol 12.5 mg PO BID 01/30/17 [History] Losartan/Hydrochlorothiazide [Hyzaar 100-25 Tablet] 1 each PO DAILY 01/30/17 [ History] Aspirin Enteric Coated [Aspirin EC] 81 mg PO DAILY #30 tablet. 02/01/17 [Rx] Atorvastatin [Lipitor] 20 mg PO HS #30 tablet 02/01/17 [Rx] Fenofibrate Nanocrystallized [Triglide] 134 mg PO DAILY 02/07/17 [History] OxyCODONE/APAP 10/325 [Percocet 10/325 MG] 1 each PO Q4HR PRN #30 tablet [Rx] Allergies/Adverse Reactions: 3 Allergy/AdvReac Type Severity Reaction Status Date / Time azithromycin [From Zithromax] Allergy Rash Verified 02/07/17 09:07 Penicillins [PCN] Allergy Rash Verified 02/07/17 09:07 Tetracycline Allergy Rash Verified 02/07/17 09:07 Data Procedures and tests throughout hospitalization: Laboratory Tests 02/08/17 06:40 WBC 12.5 H RBC 4.15 Hgb 11.9 Hct 36.1 MCV 87.0 MCH 28.7 MCHC 33.0 RDW 13.4 Plt Count 236 MPV 11.1 Immature Gran % 0.6 Seg Neutrophils % 81.1 Lymphocytes % 12.0 Monocytes % 6.2 Eosinophils % 0.0 Basophils % 0.1 Neutrophils # 10.1 H Lymphocytes # 1.5 Monocytes # 0.8 Eosinophils # 0.0 Basophils # 0.0 Date of admission: 02/07/17 14:20 Primary care physician: John Gonsales MD - Patient Status Disposition: Home, Self-Care Condition: Fair Functional capacity at discharge: independent ambulation Overall status at discharge: patient is progressing back to baseline - Discharge Instructions Follow Up With: John Gonsales MD [Primary Care Provider] - - Diet and Activity Activity: increase activity as tolerated Diet: advance to your usual diet 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: Total time spent providing and/or coordinating discharge services: Exam - Constitutional Vitals: Temp Pulse Resp BP Pulse Ox 98.1 F 85 18 118/75 93 02/09/17 12:01 02/09/17 12:01 02/09/17 12:01 02/09/17 12:01 02/09/17 12:01 General appearance IM: A&O X 3 - Respiratory Respiratory exam: Present: CTAB - Cardiovascular Cardiovascular exam IM: Present: RRR - GI/Abdominal GI/Abdominal exam IM: diminished bowel sounds, soft Incision: normal, intact - Extremities Exam Extremities exam IM: Present: full ROM - Neurological Exam Neurological exam: CN II-XII intact - VTE Documentation of Mechanical Device: Intermittent pneumatic compression device - Attending Attestation zhou greene md facog
--- NOTE | 2017-02-11 08:44 | OB/GYN Procedure Note ---
Hysterectomy - Diagnosis Date of procedure: 02/07/17 Hysterectomy pre-op: THERESA Post-op diagnosis: other (Dense pelvic adhesions) - Procedure Hysterectomy procedure: total abdominal hysterectomy, left salpingo oophorectomy , right salpingo oophorectomy, other (Lysis of adhesions, diagnostic laparoscopy ) Surgeon: Darin Martinez Victorian Literature Professor: Ivy Reynoso Anesthesia Type: General Estimated blood loss (cc): 60 Complications: none Fluids: crystalloid Specimens: right ovary, uterus, cervix, left ovary, right fallopian tube, left fallopian tube Findings: Dense intra-abdominal adhesions requiring conversion from laparoscopic assisted vaginal hysterectomy to exploratory laparotomy with lysis of adhesions and total abdominal hysterectomy with bilateral salpingo-oophrectomy. Disposition: PACU Narrative: Patient's a 56-year-old female seen in office with recurrent high-grade RHONDA of cervix. She desired definitive surgical management. She had had previous intra -abdominal surgery including C-sections. After discussed with patient options she desired definitive surgical management and signed appropriate consent. Description of procedure: Patient was taken operating room where general anesthesia was administered. She was prepped and draped in usual sterile fashion low dorsolithotomy position bladder was drained of clear urine. Cervix is visualized and grasped with single-tooth tenaculum. [place] uterine manipulators placed in the cervix. 5 mm trochars placed in the left upper quadrant as there was previous vertical skin incisions. There were dense adhesions noted from the midline down to the lower abdominal cavity as well as adhesions in the right upper quadrant. Because this decision was made the the risk of bowel injury was high and best plan of action be to proceed with abdominal hysterectomy. Trocar was removed. Scalpel was used to make pain still skin incision which was then sharply taken down to the rectus fascia. Fascia was incised the midline fascial incision was extended bilaterally. Plan was developed and rectus muscle rectus fascia was opened distally. Rectus muscle divided and peritoneum was entered sharply. Patient was placed in Trendelenburg position and O'Vaibhav-O'Hewitt self-retaining retractor was placed. Bowel packed all the operative field. Uterus was pulled upwards with Benita clamps and LigaSure was used to go across the infundibulopelvic ligaments and right side. These were cauterized and transected using this device. The LigaSure device was then used to cauterize and transect the round ligaments on each side. Broad ligaments were then skeletonized and the uterine vessels were identified cauterized and transected with LigaSure device. Further dissected the bladder down off the cervix. Sharply dissecting the bladder down a Ray-Jeannie sponge was used to further push the bladder off the cervix. Straight Benita clamps to take along the cervix which side this was insufflated transected and ligated with 0 Vicryl suture curved Benita clamps were used to go across and upper vagina below the cervix on each side these were then transected and ligated with 0 Vicryl suture the remaining open vaginal cuff was closed with 0 Vicryl. This point third irrigation was performed hemostasis was ensured. 3 g of Ami was applied. Point retractors and sponges removed and the fascia was closed with 0 Vicryl in running manner. After closure of fascia irrigation was again performed hemostasis was ensured. The deep subcutaneous tissue was reapproximated with 3-0 plain suture and the skin edges reapproximated with sally and the procedure all sponge and instruments counts are correct patient was taken recovery in good condition.
== END 2017-02-09 13:51 | disposition home or self-care (01) | DRG 742 ==
LOC: SAMDAY 07:58 → 1NENUOBS 14:20
PROVIDERS: ADMIT Obstetrics & Gynecology; ATTEND Obstetrics & Gynecology
PROC: GYNLAVH (ICD-10-PCS; 2017-02-07 09:35)

== ENCOUNTER 2018-09-30 21:41 | Observation (INO) ==
[2018-09-30] MEDS ORDERED: Aspirin 81 MG TAB.CHEW PO ONE (21:50)
--- NOTE | 2018-09-30 21:51 | Emergency Department Note ---
Disposition Clinical Impression: Elevated blood pressure reading, Hypokalemia Chest pain Qualifiers: Chest pain type: unspecified Qualified Code(s): R07.9 - Chest pain, unspecified Disposition: Admitted As Inpatient Time of Disposition: 23:23 Chest Pain HPI - General Stated Complaint: Ayanna Time Seen by Provider: 09/30/18 21:50 Vital Signs Reviewed: Yes Nursing Notes Reviewed: Yes - History of Present Illness HPI Narrative: 58-year-old female with past medical history including hypertension and hyperlipidemia presenting with a chief complaint of elevated blood pressures and chest pain. The patient states all afternoon when she was ambulating, she developed substernal chest tightness associated with shortness of breath and nausea. Also states she felt lightheaded. She states symptoms resolved after several minutes with rest. She has been having this intermittently throughout the day. When she arrived at home walking into her house she again developed the same symptoms. Chest pain is nonradiating. She has not vomited. Denies fevers, cough, diarrhea, abdominal pain. She states she has never had these symptoms before. She checked her blood pressure and states systolic was 216. She called EMS to be transported here. States compliance with her blood pressure medications. Has significant family history of coronary artery disease. - Related Data Home Medications Medication Instructions Recorded Confirmed ARIPiprazole [Abilify] 2 mg PO HS 06/06/16 06/16/17 Albuterol Sulfate [Proair Hfa] 2 puff IH Q6H PRN 06/06/16 06/16/17 FLUoxetine HCl [Prozac] 40 mg PO QAM 06/06/16 06/16/17 Furosemide [Lasix] 40 mg PO DAILY 06/06/16 06/16/17 Levothyroxine [Synthroid] 88 mcg PO QAM 06/06/16 06/16/17 Loratadine [Claritin] 10 mg PO DAILY 06/06/16 06/16/17 Pantoprazole Sodium [Protonix] 40 mg PO DAILY 06/06/16 06/16/17 Potassium Chloride [K-Tab ER] 20 meq PO DAILY 06/06/16 06/16/17 clonazePAM [Klonopin] 1 mg PO DAILY PRN 06/06/16 06/16/17 Carvedilol 12.5 mg PO BID 01/30/17 06/16/17 Losartan/Hydrochlorothiazide 1 each PO DAILY 01/30/17 06/16/17 [Hyzaar 100-25 Tablet] Fenofibrate Nanocrystallized 134 mg PO DAILY 02/07/17 06/16/17 [Triglide] cloNIDine HCl [CloNIDine HCl] 0.1 mg PO TID PRN 09/30/18 09/30/18 Previous Rx's Medication Instructions Recorded Atorvastatin [Lipitor] 20 mg PO HS #30 tablet 02/01/17 Allergies Allergy/AdvReac Type Severity Reaction Status Date / Time azithromycin [From Zithromax] Allergy Rash Verified 09/30/18 21:57 Penicillins [PCN] Allergy Rash Verified 09/30/18 21:57 tetracycline [Tetracycline] Allergy Rash Verified 09/30/18 21:57 All systems ED: reviewed and negative except as stated. Review of Systems: As Per HPI Constitutional: Denies: fever, chills Eyes: Denies: vision change ENT ED: Denies: congestion Cardiovascular: Reports: chest pain. Denies: palpitations Respiratory: Reports: dyspnea. Denies: cough Gastrointestinal: Reports: nausea. 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 - Social History Smoking Status: Never smoker Alcohol use: Reports: none Drug use: Reports: none Physical Exam - General Limitations: no limitations General appearance: alert, in no apparent distress - Head Head exam: atraumatic, normocephalic, normal inspection - Eye Eye exam: Present: normal appearance, EOMI - ENT ENT exam: normal exam, normal oropharynx, mucous membranes moist - Neck Neck exam: Present: normal inspection, full ROM, trachea midline - Chest Chest inspection: Present: normal inspection, symmetric chest wall rise - Respiratory Respiratory exam: Present: normal lung sounds bilaterally. Absent: respiratory distress, wheezes - Cardiovascular Cardiovascular exam: Present: regular rate, normal rhythm, normal heart sounds, other (bialteral radial pulses equal). Absent: systolic murmur, diastolic murmur - Abdominal Exam Abdominal exam: Present: soft, Non-Tender. Absent: distention, guarding, rebound, rigidity - Extremities Exam Extremities exam: Present: normal inspection, normal capillary refill, other (mild bilateral lower extremity swelling, non pitting) - Back Exam Back exam: Present: normal inspection - Neurological Exam Neurological exam: Present: alert, oriented X3 - Psychiatric Psychiatric exam: Present: normal affect, normal mood - Skin Skin exam: Present: warm, dry. Absent: diaphoresis, pallor Course Vital Signs Temperature 98.3 F 09/30/18 21:49 Pulse Rate 74 09/30/18 21:49 Respiratory Rate 18 09/30/18 21:49 Blood Pressure 180/95 09/30/18 21:49 O2 Sat by Pulse Oximetry 100 09/30/18 21:49 Temperature 98.3 F 09/30/18 21:49 Pulse Rate 73 09/30/18 22:19 Respiratory Rate 18 09/30/18 22:19 Blood Pressure 202/96 09/30/18 22:19 O2 Sat by Pulse Oximetry 99 09/30/18 22:19 Oxygen Delivery Oxygen Delivery Room Air Chest Pain - MDM Narrative Medical decision making narrative: Patient's blood pressures are elevated with systolic greater than 200. She has been having exertional intermittent chest pain and shortness of breath. EKG shows new changes including flattening of the T-wave in aVL and 0.[address] depression in V3 and V4 without ST elevations. We will obtain troponin, chest x-ray, CBC, BMP, d-dimer. We will be giving aspirin. She is chest pain-free at this time. 23:05 Troponin is less than 0.03. No electrolyte abnormality. D-dimer is not elevated. Patient remains chest pain-free. We will admit the patient for further ACS workup and elevated blood pressures. 23:[address] Membreno, who accepts admission. Recommending replacing potassium and giving 10mg IV hydralazine. - Medical Records Medical records reviewed: Yes I reviewed the patient's medical records. - Lab Data Lab results reviewed: Yes I reviewed the patient's lab results. Result diagrams: 09/30/18 22:01 09/30/18 22:01 Lab Results 09/30/18 09/30/18 09/30/18 Range/Units 22:01 22:01 22: WBC 7.8 (4.3-11.1) K/mcL RBC 4.58 (3.82-4.97) M/mcL Hgb 12.9 (11.5-15.4) g/dL Hct 38.4 (35.3-44.9) % MCV 83.8 (83.0-100.0) fL MCH 28.2 (28.0-33.3) pg MCHC 33.6 (31.6-35.5) g/dL RDW 13.6 (11.5-14.5) % Plt Count 257 (140-400) K/mcL MPV 11.1 (9.4-12.4) fL Immature Gran % 0.8 (0-4) % Seg Neutrophils % 55.4 % Lymphocytes % 31.1 % Monocytes % 9.5 % Eosinophils % 2.7 % Basophils % 0.5 % Neutrophils # 4.3 (1.6-8.9) K/mcL Lymphocytes # 2.4 (0.6-4.6) K/mcL Monocytes # 0.7 (0.0-1.3) K/mcL Eosinophils # 0.2 (0.0-0.6) K/mcL Basophils # 0.0 (0.0-0.2) K/mcL D-Dimer (0-500) ng/mLFEU Sodium 140 (136-145) mEq/L Potassium 3.3 L (3.5-5.1) mEq/L Chloride 103 (98-107) mEq/L Carbon Dioxide 28 (23-29) mEq/L BUN 26 H (6-20) mg/dL Creatinine 1.18 (0.60-1.20) mg/dL Est GFR ( Amer) 57 L (> 60) Est GFR (Non-Af Amer) 47 L (> 60) BUN/Creatinine Ratio 22 (6-26) Glucose 114 H (70-105) mg/dL Calculated Osmolality 296 (280-300) Calcium 8.8 (8.6-10.3) mg/dL Troponin I < 0.03 (< 0.04) ng/mL B-Natriuretic Peptide 22 (Less than 100) pg/mL 09/30/18 Range/Units 22:01 WBC (4.3-11.1) K/mcL RBC (3.82-4.97) M/mcL Hgb (11.5-15.4) g/dL Hct (35.3-44.9) % MCV (83.0-100.0) fL MCH (28.0-33.3) pg MCHC (31.6-35.5) g/dL RDW (11.5-14.5) % Plt Count (140-400) K/mcL MPV (9.4-12.4) fL Immature Gran % (0-4) % Seg Neutrophils % % Lymphocytes % % Monocytes % % Eosinophils % % Basophils % % Neutrophils # (1.6-8.9) K/mcL Lymphocytes # (0.6-4.6) K/mcL Monocytes # (0.0-1.3) K/mcL Eosinophils # (0.0-0.6) K/mcL Basophils # (0.0-0.2) K/mcL D-Dimer 287 (0-500) ng/mLFEU Sodium (136-145) mEq/L Potassium (3.5-5.1) mEq/L Chloride (98-107) mEq/L Carbon Dioxide (23-29) mEq/L BUN (6-20) mg/dL Creatinine (0.60-1.20) mg/dL Est GFR ( Amer) (> 60) Est GFR (Non-Af Amer) (> 60) BUN/Creatinine Ratio (6-26) Glucose (70-105) mg/dL Calculated Osmolality (280-300) Calcium (8.6-10.3) mg/dL Troponin I (< 0.04) ng/mL B-Natriuretic Peptide (Less than 100) pg/mL - Radiology Data Radiology results reviewed: Yes I reviewed the patient's radiology results. Chest X-Ray 09/30/18 21:51 IMPRESSION: Negative portable chest. D/ / Juan Gandhi MD / Juan Gandhi MD Interpreting Provider: Juan Gandhi MD - EKG Data EKG attestation: Yes I reviewed and interpreted this EKG. EKG results narrative: EKG obtained at 2155 shows sinus rhythm at rate 74. HI interval 157, QRS duration 108, QTc 473. T-wave flattening in aVL, 0.[address] depression in V3 and V4 without ST elevation. Compared to old EKG on 05/05/2018 which these changes are new.
[2018-09-30 22:37] LABS: Basophils % 0.5 %; Eosinophils # 0.2 K/mcL (0.0-0.6); Eosinophils % 2.7 %; Hematocrit 38.4 % (35.3-44.9); Hemoglobin 12.9 g/dL (11.5-15.4); Immature Granulocytes % 0.8 % (0-4); Lymphocytes # 2.4 K/mcL (0.6-4.6); Lymphocytes % 31.1 %; Mean Corpuscular HGB Conc 33.6 g/dL (31.6-35.5); Mean Corpuscular Hemoglobin 28.2 pg (28.0-33.3); Mean Corpuscular Volume 83.8 fL (83.0-100.0); Mean Platelet Volume 11.1 fL (9.4-12.4); Monocytes # 0.7 K/mcL (0.0-1.3); Monocytes % 9.5 %; Neutrophils # 4.3 K/mcL (1.6-8.9); Platelet Count 257 K/mcL (140-400); Red Blood Count 4.58 M/mcL (3.82-4.97); Red Cell Distribution Width 13.6 % (11.5-14.5); Segmented Neutrophils % 55.4 %; White Blood Count 7.8 K/mcL (4.3-11.1)
[2018-09-30 22:58] LABS: Blood Urea Nitrogen 26 mg/dL (6-20); Calcium 8.8 mg/dL (8.6-10.3); Carbon Dioxide 28 mEq/L (23-29); Chloride 103 mEq/L (98-107); Glucose 114 mg/dL (70-105); Osmolality,Calculated 296 (280-300); Potassium 3.3 mEq/L (3.5-5.1); Sodium 140 mEq/L (136-145); Troponin I < 0.03 ng/mL (< 0.04)
[2018-09-30 23:01] LABS: BUN/Creatinine Ratio 22 (6-26); eGFR For African Americans 57 (> 60); eGFR For Non-African Americans 47 (> 60)
--- NOTE | 2018-09-30 23:42 | Emergency Department Note ---
Disposition Clinical Impression: Elevated blood pressure reading, Hypokalemia Chest pain Qualifiers: Chest pain type: unspecified Qualified Code(s): R07.9 - Chest pain, unspecified Disposition: Admitted As Inpatient Condition: Good Referrals: John Gonsales MD [Primary Care Provider] - Time of Disposition: 23:23 General Adult HPI - General Chief complaint: ED Shortness of Breath/Dyspnea Stated complaint: Ayanna Time Seen by Provider: 09/30/18 21:50 Source: patient, EMS Limitations: no limitations Nursing Notes Reviewed: Yes Vital Signs Reviewed: Yes - History of Present Illness Pain Scale: 2 - Related Data Home Medications Medication Instructions Recorded Confirmed ARIPiprazole [Abilify] 2 mg PO HS 06/06/16 09/30/18 Albuterol Sulfate [Proair Hfa] 2 puff IH Q6H PRN 06/06/16 09/30/18 FLUoxetine HCl [Prozac] 40 mg PO QAM 06/06/16 09/30/18 Furosemide [Lasix] 40 mg PO DAILY 06/06/16 09/30/18 Levothyroxine [Synthroid] 88 mcg PO QAM 06/06/16 09/30/18 Loratadine [Claritin] 10 mg PO DAILY 06/06/16 09/30/18 Pantoprazole Sodium [Protonix] 40 mg PO DAILY 06/06/16 09/30/18 Potassium Chloride [K-Tab ER] 20 meq PO DAILY 06/06/16 09/30/18 clonazePAM [Klonopin] 1 mg PO DAILY PRN 06/06/16 09/30/18 Carvedilol 12.5 mg PO BID 01/30/17 09/30/18 Losartan/Hydrochlorothiazide 1 each PO DAILY 01/30/17 09/30/18 [Hyzaar 100-25 Tablet] Fenofibrate Nanocrystallized 134 mg PO DAILY 02/07/17 09/30/18 [Triglide] cloNIDine HCl [CloNIDine HCl] 0.1 mg PO TID PRN 09/30/18 09/30/18 Previous Rx's Medication Instructions Recorded Atorvastatin [Lipitor] 20 mg PO HS #30 tablet 02/01/17 Allergies Allergy/AdvReac Type Severity Reaction Status Date / Time azithromycin [From Zithromax] Allergy Rash Verified 09/30/18 21:57 Penicillins [PCN] Allergy Rash Verified 09/30/18 21:57 tetracycline [Tetracycline] Allergy Rash Verified 09/30/18 21:57 Constitutional: Denies: fever, chills Eyes: Denies: vision change ENT ED: Denies: congestion Cardiovascular: Reports: chest pain. Denies: palpitations Respiratory: Reports: dyspnea. Denies: cough Gastrointestinal: Reports: nausea. 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 - Social History Smoking Status: Never smoker Smokeless Tobacco Status: No Alcohol use: Reports: none Drug use: Reports: none Physical Exam - General Limitations: no limitations General appearance: alert, in no apparent distress Course Vital Signs Temperature 98.3 F 09/30/18 21:49 Pulse Rate 74 09/30/18 21:49 Respiratory Rate 18 09/30/18 21:49 Blood Pressure 180/95 09/30/18 21:49 O2 Sat by Pulse Oximetry 100 09/30/18 21:49 Temperature 98.3 F 09/30/18 21:49 Pulse Rate 88 09/30/18 23:00 Respiratory Rate 18 09/30/18 23:00 Blood Pressure 192/83 09/30/18 23:00 O2 Sat by Pulse Oximetry 99 09/30/18 23:35 Oxygen Delivery Oxygen Delivery Room Air Medical Decision Making - Medical Records Medical records reviewed: Yes I reviewed the patient's medical records. - Lab Data Lab results reviewed: Yes I reviewed the patient's lab results. Result diagrams: 09/30/18 22:01 09/30/18 22:01 Lab Results 09/30/18 09/30/18 09/30/18 Range/Units 22:01 22:01 22:01 WBC 7.8 (4.3-11.1) K/mcL RBC 4.58 (3.82-4.97) M/mcL Hgb 12.9 (11.5-15.4) g/dL Hct 38.4 (35.3-44.9) % MCV 83.8 (83.0-100.0) fL MCH 28.2 (28.0-33.3) pg MCHC 33.6 (31.6-35.5) g/dL RDW 13.6 (11.5-14.5) % Plt Count 257 (140-400) K/mcL MPV 11.1 (9.4-12.4) fL Immature Gran % 0.8 (0-4) % Seg Neutrophils % 55.4 % Lymphocytes % 31.1 % Monocytes % 9.5 % Eosinophils % 2.7 % Basophils % 0.5 % Neutrophils # 4.3 (1.6-8.9) K/mcL Lymphocytes # 2.4 (0.6-4.6) K/mcL Monocytes # 0.7 (0.0-1.3) K/mcL Eosinophils # 0.2 (0.0-0.6) K/mcL Basophils # 0.0 (0.0-0.2) K/mcL D-Dimer (0-500) ng/mLFEU Sodium 140 (136-145) mEq/L Potassium 3.3 L (3.5-5.1) mEq/L Chloride 103 (98-107) mEq/L Carbon Dioxide 28 (23-29) mEq/L BUN 26 H (6-20) mg/dL Creatinine 1.18 (0.60-1.20) mg/dL Est GFR ( Amer) 57 L (> 60) Est GFR (Non-Af Amer) 47 L (> 60) BUN/Creatinine Ratio 22 (6-26) Glucose 114 H (70-105) mg/dL Calculated Osmolality 296 (280-300) Calcium 8.8 (8.6-10.3) mg/dL Troponin I < 0.03 (< 0.04) ng/mL B-Natriuretic Peptide 22 (Less than 100) pg/mL 09/30/18 Range/Units 22:01 WBC (4.3-11.1) K/mcL RBC (3.82-4.97) M/mcL Hgb (11.5-15.4) g/dL Hct (35.3-44.9) % MCV (83.0-100.0) fL MCH (28.0-33.3) pg MCHC (31.6-35.5) g/dL RDW (11.5-14.5) % Plt Count (140-400) K/mcL MPV (9.4-12.4) fL Immature Gran % (0-4) % Seg Neutrophils % % Lymphocytes % % Monocytes % % Eosinophils % % Basophils % % Neutrophils # (1.6-8.9) K/mcL Lymphocytes # (0.6-4.6) K/mcL Monocytes # (0.0-1.3) K/mcL Eosinophils # (0.0-0.6) K/mcL Basophils # (0.0-0.2) K/mcL D-Dimer 287 (0-500) ng/mLFEU Sodium (136-145) mEq/L Potassium (3.5-5.1) mEq/L Chloride (98-107) mEq/L Carbon Dioxide (23-29) mEq/L BUN (6-20) mg/dL Creatinine (0.60-1.20) mg/dL Est GFR ( Amer) (> 60) Est GFR (Non-Af Amer) (> 60) BUN/Creatinine Ratio (6-26) Glucose (70-105) mg/dL Calculated Osmolality (280-300) Calcium (8.6-10.3) mg/dL Troponin I (< 0.04) ng/mL B-Natriuretic Peptide (Less than 100) pg/mL - Radiology Data Radiology results reviewed: Yes I reviewed the patient's radiology results. Chest X-Ray 09/30/18 21:51 IMPRESSION: Negative portable chest. D/ / Juan Gandhi MD / Juan Gandhi MD Interpreting Provider: Juan Gandhi MD - EKG Data EKG #1 EKG attestation: Yes I reviewed and interpreted this EKG. EKG results narrative: EKG shows normal sinus rhythm with ventricular rate of 74. Minimal anterior ST segment depression in V3 and V4. No ST segment elevation. No arrhythmia or ectopy. Attestation Statement - Attestation Attestation: I, Tomas Williamson MD, personally evaluated this patient and discussed their management with the resident physician. I reviewed the resident's note and agree with the documented findings, medical decision making, and plan of care. I reviewed the residents documentation and agree with the residents assessment and plan of care. I have personally had face to face time with the patient. I personally supervised and was present for the romano/critical portions of the following procedures completed by the resident: EKG interpretation. 58-year-old female with history of hypertension and hyperlipidemia presents to the emergency department with a complaint of having intermittent episodes all day today of shortness of breath and chest tightness associated with exertion and relieved with rest. Also some nausea with the episodes. She did feel a little clammy a few times but did not get diaphoretic. No prior cardiac history. On examination patient is a well-developed obese female in no acute distress. She is alert and oriented 3. There is no cyanosis or diaphoresis. Chest is nontender to palpation. Breath sounds are clear and equal bilaterally. Heart regular rate and rhythm. Abdomen is soft and nontender with normal bowel sound s. EKG shows normal sinus rhythm with ventricular rate of 74. Minimal anterior ST segment depression in V3 and V4. No ST segment elevation. No arrhythmia or ectopy. Chest x-ray negative. Labs reviewed. Troponin less than 0.03. BNP 22. D-dimer 287. Potassium 3.3. Patient received aspirin. She did not have any chest pain here in the emergency department. She also received by mouth potassium. The hospitalist, Dr. Membreno, was consulted and accepted admission of the patient. She did request that the patient be given hydralazine 10 mg IV.
--- NOTE | 2018-09-30 23:43 | Internal Med History&Physical ---
<Darwin Wilkes - Last Filed: 10/01/18 01:37> Date of Encounter: 10/01/18 Time of Encounter: 00:18 Internal Medicine - H&P: HPI Chief complaint: Shortness of breath Admitted From: Emergency Dept Plans for Post Hospital Care: Home History of present illness: Ms. Granger is a 58 year old female with past medical history of hypertension, hypothyroidism, hyperlipidemia who presents emergency department with complaint of difficulty breathing. Patient states that she was at work this afternoon and she would intermittently experience dyspnea as well as a dizzy feeling. She has never experienced these symptoms before. 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 Patient states that she went home and checked her blood pressure with a home cuff and found a systolic measurements in the 220s. She does have a history of poorly controlled blood pressure and home medications include Coreg, Hyzaar, Lasix, clonidine. She states she has been compliant with her medications. She does follow regularly with her primary care physician and states that her blood pressure is mildly elevated at outpatient visits. Her daughter who is in the room states that she has been struggling with her blood pressures more recently. She admits to associated symptoms including some mild substernal chest discomfort which is now resolved as well as some mild nausea. She denies any symptoms of diaphoresis, confusion, abdominal pain, vomiting, changes in bowel or bladder, numbness, tingling, increased lower extremity swelling. Patient states that she has been worked up for her heart in the past due to these chest discomforts but does not have a formal diagnosis of CAD. She does admit to not watching salt intake and has recently started meloxicam, approximately 1 month ago. Per chart review, patient did have a stress echo in November 2017 which was negative for ischemia. She also had a nuclear stress test in January 2017 which was also negative. Most recent echocardiogram on 01/31/17 shows ejection fraction of 65% with mild diastolic dysfunction. She does not follow with combustion analyst. Upon arrival to the emergency department, vital signs are significant for a blood pressure 202/96, otherwise within normal limits. Laboratory results show a normal CBC, chemistries with potassium 3.3, negative troponin, normal BNP and a normal d-dimer. Chest x-ray was obtained and showed no acute process. She was given hydralazine 1 dose with improvement of blood pressure to 171/84 and symptoms. At time of my interview, patient shortness of breath has resolved and she is currently expansion of chest pain. Her nausea has resolved and she is currently asymptomatic. She states she has been compliant with medication regimen. Past medical history as above Past surgical history: Cholecystectomy, tubal ligation, appendectomy Social history: Never smoker, rare alcohol use approximately once per month, denies drug use Family history: Patient admits to cardiac disease in her parents without harmony ature cardiac . Past Med Surg Social Fam HX - Past Medical History Medical history: non-contributory, hyperlipidemia, hypertension, other Additional medical history: carpal tunnel,depression,abnormal pap smear,chest pain Psychiatric history: depression - Past Surgical History Surgical History: appendectomy, cholecystectomy, other Additional surgical history: tibia repair - Social History Smoking Status: Never smoker Smokeless Tobacco Status: No Alcohol use: none Drug use: none - Family History Father Hx Family Cancer: Yes (lung) Mother Hx Family Cardiac Disorders: Yes (HTN, cardiomegaly) Internal Medicine - H&P: Meds ARIPiprazole [Abilify] 2 mg PO HS 06/06/16 [History] Albuterol Sulfate [Proair Hfa] 2 puff IH Q6H PRN 06/06/16 [History] FLUoxetine HCl [Prozac] 40 mg PO QAM 06/06/16 [History] Furosemide [Lasix] 40 mg PO DAILY 06/06/16 [History] Levothyroxine [Synthroid] 88 mcg PO QAM 06/06/16 [History] Loratadine [Claritin] 10 mg PO DAILY 06/06/16 [History] Pantoprazole Sodium [Protonix] 40 mg PO DAILY 06/06/16 [History] Potassium Chloride [K-Tab ER] 20 meq PO DAILY 06/06/16 [History] clonazePAM [Klonopin] 1 mg PO DAILY PRN 06/06/16 [History] Carvedilol 12.5 mg PO BID 01/30/17 [History] Losartan/Hydrochlorothiazide [Hyzaar 100-25 Tablet] 1 each PO DAILY 01/30/17 [History] Atorvastatin [Lipitor] 20 mg PO HS #30 tablet 02/01/17 [Rx] Fenofibrate Nanocrystallized [Triglide] 134 mg PO DAILY 02/07/17 [History] cloNIDine HCl [CloNIDine HCl] 0.1 mg PO TID PRN 09/30/18 [History] Allergy/AdvReac Type Severity Reaction Status Date / Time azithromycin [From Zithromax] Allergy Rash Verified 09/30/18 21:57 Penicillins [PCN] Allergy Rash Verified 09/30/18 21:57 tetracycline [Tetracycline] Allergy Rash Verified 09/30/18 21:57 All Systems PM: A 10-system review of systems was performed and is negative for pertinent findings except as documented above in the HPI. Review of systems: - Constitutional: Denies fevers, chills, weight loss, generalized fatigue - Head/Neck: Admits to posterior neck tenderness. Denies AVILA, neck stiffness - EENT: Denies vision changes/blurriness, tinnitus, auditory changes, rhinorrhea, congestion, sore throat, odynaphagia - CVS: Admits to chest discomfort, dyspnea on exertion. Denies cpalpitations, orthopnea, edema, PND, - Pulm: Admits to cough. Denies cough, sputum, hematemesis, wheezing - GI: Nausea. Denies abdominal pain, anorexia, vomiting, diarrhea, constipation, melena - : Denies dysuria, increased frequency, urgency, hematuria, - MSK: Denies joint pain, limited ROM - Skin: Denies rashes, ulcers, color changes, - Neuro: Dizziness. Denies AVILA, paresthesias, focal deficits, ataxia, - Constitutional Vitals: Temp Pulse Resp BP Pulse Ox 98.3 F 88 18 192/83 99 09/30/18 21:49 09/30/18 23:00 09/30/18 23:00 09/30/18 23:00 09/30/18 23:35 Exam: Gen.: Vitals noted. No acute distress. AAOx3, resting comfortably in bed. HEENT: PERRL/EOMI, oropharynx clear, Normocephalic, atraumatic, MMM Neck: Supple. No adenopathy. No thyroid nodules. Mildly tender to palpation of posterior neck with full ROM. Cardiac: RRR, no murmur, +S1/S2, 1+ BLE edema Pulmonary: CTA bilaterally, no wheezes, rales or rhonchi, equal chest expansion, unlabored breathing Abdomen: soft, nontender, BS noted, no guarding, no palpable HSM Skin: warm and dry, no visible lesions. MSK: ROM intact, no joint swelling noted, gait no assessed while in bed. Non tender calf or clubbing Neuro: A&Ox3, moves all extremities, no focal deficits, sensation intact, CN grossly intact Psych: Appropriate mood and behavior, AOx3 Internal Med - H&P Results - Labs CBC & Chem 7: 09/30/18 22:01 09/30/18 22:01 Labs: Short CBC 09/30/18 Range/Units 22:01 WBC 7.8 (4.3-11.1) K/mcL Hgb 12.9 (11.5-15.4) g/dL Hct 38.4 (35.3-44.9) % Plt Count 257 (140-400) K/mcL Neutrophils # 4.3 (1.6-8.9) K/mcL BMP 09/30/18 22:01 Sodium 140 Potassium 3.3 L Chloride 103 Carbon Dioxide 28 BUN 26 H Creatinine 1.18 Glucose 114 H Calcium 8.8 Cardiac Enzymes 09/30/18 Range/Units 22:01 Troponin I < 0.03 (< 0.04) ng/mL - Impressions ITS Impressions Chest X-Ray 09/30/18 21:51 IMPRESSION: Negative portable chest. D/ / Juan Gandhi MD / Juan Gandhi MD Interpreting Provider: Juan Gandhi MD - Assessment and Plan (1) Hypertensive urgency Current Visit: Yes Status: Acute Assessment and plan: - Bp at presentation with high of 202/96 -Patient does report a history of poorly controlled hypertension and home medications include clonidine, Hyzaar, Coreg, Lasix - Patient states that as an outpatient is mildly increased however family states that it may be worse controlled than this - Patient was having symptoms of dizziness, shortness of breath on exertion this afternoon - Blood pressure has since responded nicely with most recent reading of 132/76 - No evidence of end organ damage including negative troponin, normal kidney function - Chest x-ray shows no acute process - Etiology is likely multifactorial including chronic poor control, poor diet, starting NSAID use Plan - As patient is improving both symptomatically as well as and her vital signs, we will continue her home regimen - We will add hydralazine when necessary - We will trend troponins - Patient does have a recent cardiac workup including stress echocardiogram in November 2017. This was within normal limits at that time. We will repeat echocardiogram as this has been greater than 2 years - Advised dietary changes and discontinuation of NSAID (2) Chest pain Current Visit: Yes Status: Acute Assessment and plan: -Suspect that this is likely secondary to elevated blood pressure reading as above - Alternatively, patient does have risk factors for cardiac disease including hypertension, hyperlipidemia, family history - Patient did have relatively recent cardiac workup for chest discomfort which included stress testing in Nov 2017 - Troponin was <0.03 and EKG showed NSR with no signs of ischemia. Plan - Will trend troponin - Treat BP as above - Will repeat Echocardiogram as this has been since January 2017 Qualifiers: Chest pain type: unspecified Qualified Code(s): R07.9 - Chest pain, unspecified (3) Hypokalemia Current Visit: Yes Status: Acute Assessment and plan: K of 3.3 in ED s/p 20 mEq in ED Will repeat labs in AM and add stat magnesium Replenish as necessary (4) HLD (hyperlipidemia) Current Visit: Yes Status: Chronic Assessment and plan: Continue statin. Continue fenofibrate as outpatient Qualifiers: Hyperlipidemia type: unspecified Qualified Code(s): E78.5 - Hyperlipidemia, unspecified (5) Anxiety Current Visit: Yes Status: Chronic Assessment and plan: - May be possible anxiety component to symptoms, however there is more likely causes to contribute - Patient denies any new stressors, triggers. - Will continue home medications (6) Hypertension Current Visit: Yes Status: Chronic Assessment and plan: as above Qualifiers: Hypertension type: essential hypertension Qualified Code(s): I10 - Essential (primary) hypertension (7) DVT prophylaxis Current Visit: Yes Status: Acute Assessment and plan: heparin subQ - Time Spent With Patient Total time spent is greater than 50% in coordination of care (as documented) at patient's floor/unit and/or counseling patient: <Tahir Saravia - Last Filed: 10/01/18 04:12> Date of Encounter: 09/30/18 Internal Medicine - H&P: HPI History of present illness: Ms. Granger is a 58 year old female All Systems PM: A 10-system review of systems was performed and is negative for pertinent findings except as documented above in the HPI. - Constitutional Vitals: Temp Pulse Resp BP Pulse Ox 98.0 F 80 16 132/76 98 10/01/18 00:32 10/01/18 00:32 10/01/18 00:32 10/01/18 00:32 10/01/18 00:32 Internal Med - H&P Results - Labs CBC & Chem 7: 09/30/18 22:01 09/30/18 22:01 Labs: Short CBC 09/30/18 Range/Units 22:01 WBC 7.8 (4.3-11.1) K/mcL Hgb 12.9 (11.5-15.4) g/dL Hct 38.4 (35.3-44.9) % Plt Count 257 (140-400) K/mcL Neutrophils # 4.3 (1.6-8.9) K/mcL BMP 09/30/18 22:01 Sodium 140 Potassium 3.3 L Chloride 103 Carbon Dioxide 28 BUN 26 H Creatinine 1.18 Glucose 114 H Calcium 8.8 Cardiac Enzymes 09/30/18 Range/Units 22:01 Troponin I < 0.03 (< 0.04) ng/mL - Impressions ITS Impressions Chest X-Ray 09/30/18 21:51 IMPRESSION: Negative portable chest. D/ / Juan Gandhi MD / Juan Gandhi MD Interpreting Provider: Juan Gandhi MD - Time Spent With Patient Total time spent is greater than 50% in coordination of care (as documented) at patient's floor/unit and/or counseling patient: - Attending Attestation I performed a history and physical examination of the patient and discussed her management with the resident. I reviewed the resident's note and agree with the assessment and documented plan of care. In short patient is a 58-year-old female with a past medical history of difficult to control hypertension who presented to the ED due to intermittent symptoms of shortness of breath, dizziness and chest pain occurring earlier today at work. Patient checked her blood pressure at home and found it to be elevated with a systolic blood pressure in the 220s. Workup in the ED showed no evidence of any end organ damage. Labs, EKG and imaging were unremarkable. Of note patient reports taking meloxicam for the past month and admits to dietary indiscretions in terms of her salt intake. Patient received one-time dose of 10 mg of hydralazine with reduction in blood pressure. On my assessment patient was asymptomatic. Physical exam was unremarkable. Patient had cardiac workup in November of last year including echo and stress testing the results of which did not necessitate any further workup. At this time we will admit for observation. Currently hemodynamically stable. We will resume patient's home antihypertensives and monitor. Agree with as needed hydralazine. Trend troponin. We will repeat echocardiogram. Consider further evaluation based on findings.
[2018-10-01] MEDS ORDERED: Naloxone 0.4 MG/ML INJ IVP PRN (00:10)
[2018-10-01] MEDS ORDERED: Ondansetron 4 MG/2 ML VIAL IVP PRN (00:10)
[2018-10-01] MEDS ORDERED: clonazePAM 1 MG TABLET PO PRN (00:15)
[2018-10-01 05:59] LABS: Basophils % 0.6 %; Eosinophils # 0.2 K/mcL (0.0-0.6); Eosinophils % 3.1 %; Hematocrit 37.5 % (35.3-44.9); Hemoglobin 12.2 g/dL (11.5-15.4); Immature Granulocytes % 0.4 % (0-4); Lymphocytes # 2.2 K/mcL (0.6-4.6); Lymphocytes % 31.9 %; Mean Corpuscular HGB Conc 32.5 g/dL (31.6-35.5); Mean Corpuscular Hemoglobin 28.1 pg (28.0-33.3); Mean Corpuscular Volume 86.4 fL (83.0-100.0); Mean Platelet Volume 11.2 fL (9.4-12.4); Monocytes # 0.6 K/mcL (0.0-1.3); Monocytes % 8.8 %; Neutrophils # 3.8 K/mcL (1.6-8.9); Platelet Count 247 K/mcL (140-400); Red Blood Count 4.34 M/mcL (3.82-4.97); Red Cell Distribution Width 13.6 % (11.5-14.5); Segmented Neutrophils % 55.2 %; White Blood Count 6.8 K/mcL (4.3-11.1)
[2018-10-01] MEDS: *HR* Heparin 5,000 UNIT/ML VIAL SQ SCH ×2 (06:02→17:38)
[2018-10-01 06:22] LABS: BUN/Creatinine Ratio 23 (6-26); Blood Urea Nitrogen 20 mg/dL (6-20); Calcium 8.8 mg/dL (8.6-10.3); Carbon Dioxide 29 mEq/L (23-29); Chloride 103 mEq/L (98-107); Glucose 93 mg/dL (70-105); Osmolality,Calculated 296 (280-300); Potassium 3.5 mEq/L (3.5-5.1); Sodium 142 mEq/L (136-145); Troponin I < 0.03 ng/mL (< 0.04); eGFR For African Americans > 60 (> 60); eGFR For Non-African Americans > 60 (> 60)
[2018-10-01] MEDS: cloNIDine HCl 0.1 MG TABLET PO SCH ×3 (08:10→19:36)
[2018-10-01] MEDS: FLUoxetine 20 MG CAPSULE PO SCH (08:10)
[2018-10-01] MEDS: Losartan/HCTZ 50-12.5 TABLET PO SCH (08:10)
[2018-10-01] MEDS: Furosemide 40 MG TABLET PO SCH (08:10)
--- NOTE | 2018-10-01 13:19 | Internal Med Progress Note ---
Hospitalist Progress Note - Encounter Date of Encounter: 10/01/18 Time of Encounter: 10:30 - Subjective Interval History: Ms. 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 Her chest pressure locatd sub sternally and radiating to her neck. She denied any trauma / recent travel history. She denied any PND / Orthopnea, however she does have moderate ALLEN. - Exam Vitals: Temp Pulse Resp BP Pulse Ox 97.9 F 71 16 122/82 97 10/01/18 11:39 10/01/18 11:39 10/01/18 11:39 10/01/18 11:39 10/01/18 11:39 Exam: Gen: Alert, awake, Oriented to time,place and person Chest: Diminished breath sounds B/L, No wheezing, No crackles, No rales Heart: S1S2+ RRR No murmurs Abd: Soft, NT, BS +, No organomegaly Ext: No edema, pulses are palpable, No calf tenderness Neuro : No acute focal neuro deficits noticed Skin: No rash. - Assessment and Plan (1) Chest pain Current Visit: Yes Status: Acute Assessment and Plan: She denied any active CP now her serial troponin were negative Her EKG showed some non specific ST T changes She did have normal stress test in 2017 had normal stress echo in 2018 Since she is high risk for ACS, will do nuclear stress test cont ASA, Coreg and Statin will check 2 D Echo too (2) SOB (shortness of breath) Current Visit: Yes Status: Acute Assessment and Plan: Mostly due to anxiety No signs of volume overload will check 2 D Echo she does have chronic diastolic CHF - not in exacerbation now Since she works at [employer] where they have Legionella out break will check for Legionella too (3) Anxiety Current Visit: Yes Status: Chronic Assessment and Plan: on Ativan PRN (4) HLD (hyperlipidemia) Current Visit: Yes Status: Chronic Assessment and Plan: cont home med Lipitor (5) Hypertension Current Visit: Yes Status: Chronic Assessment and Plan: well controlled today cont current regimen (6) GERD (gastroesophageal reflux disease) Current Visit: No Status: Chronic Assessment and Plan: on PPI - Time Spent with Patient Total time spent is greater than 50% in coordination of care (as documented) at patient's floor/unit and/or counseling patient: Internal Medicine: Result - Labs CBC & Chem 7: 10/01/18 05:18 10/01/18 05:18 Labs: Short CBC 09/30/18 10/01/18 Range/Units 22:01 05:18 WBC 7.8 6.8 (4.3-11.1) K/mcL Hgb 12.9 12.2 (11.5-15.4) g/dL Hct 38.4 37.5 (35.3-44.9) % Plt Count 257 247 (140-400) K/mcL Neutrophils # 4.3 3.8 (1.6-8.9) K/mcL BMP 09/30/18 10/01/18 22:01 05:18 Sodium 140 142 Potassium 3.3 L 3.5 Chloride 103 103 Carbon Dioxide 28 29 BUN 26 H 20 Creatinine 1.18 0.86 Glucose 114 H 93 Calcium 8.8 8.8 Cardiac Enzymes 09/30/18 10/01/18 Range/Units 22:01 05:18 Troponin I < 0.03 < 0.03 (< 0.04) ng/mL - ABG Interpretation ABG results: PT/INR, D-dimer 287 ng/mLFEU (0-500) 09/30/18 22:01 - Impressions Impressions Chest X-Ray 09/30/18 21:51 IMPRESSION: Negative portable chest. D/ / Juan Gandhi MD / Juan Gandhi MD Interpreting Provider: Juan Gandhi MD Consult Discharge Plan - Plan Referrals: John Gonsales MD [Primary Care Provider] - (1) Chest pain Qualifiers: Chest pain type: unspecified Qualified Code(s): R07.9 - Chest pain, unspecified (4) HLD (hyperlipidemia) Qualifiers: Hyperlipidemia type: unspecified Qualified Code(s): E78.5 - Hyperlipidemia, unspecified (5) Hypertension Qualifiers: Hypertension type: essential hypertension Qualified Code(s): I10 - Essential (primary) hypertension (6) GERD (gastroesophageal reflux disease) Qualifiers: Esophagitis presence: without esophagitis Qualified Code(s): K21.9 - Gastro-esophageal reflux disease without esophagitis
[2018-10-01] MEDS ORDERED: *HR* LORazepam 0.5 MG TABLET PO PRN (13:28)
[2018-10-01] MEDS: Acetaminophen 325 MG TABLET PO PRN (15:34)
[2018-10-01] MEDS: ARIPiprazole 2 MG TABLET PO SCH (19:36)
[2018-10-02] MEDS: Levalbuterol Neb 1.25 MG/3 ML IH SCH ×3 (03:11→15:28)
[2018-10-02] MEDS ORDERED: Regadenoson 0.4 MG/5 ML SYRINGE IVP ONE (06:32)
[2018-10-02] MEDS: *HR* Heparin 5,000 UNIT/ML VIAL SQ SCH ×2 (06:36→17:59)
[2018-10-02] MEDS: Furosemide 40 MG TABLET PO SCH (09:44)
[2018-10-02] MEDS: Losartan/HCTZ 50-12.5 TABLET PO SCH (09:44)
[2018-10-02] MEDS: cloNIDine HCl 0.1 MG TABLET PO SCH ×3 (09:44→20:08)
[2018-10-02] MEDS: FLUoxetine 20 MG CAPSULE PO SCH (09:45)
--- NOTE | 2018-10-02 13:44 | Internal Med Progress Note ---
Hospitalist Progress Note - Encounter Date of Encounter: 10/02/18 Time of Encounter: 10:20 - Subjective Interval History: Ms. 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 Her chest pressure located sub sternal and radiating to her neck. She denied any trauma / recent travel history. She denied any PND / Orthopnea, however she does have moderate ALLEN. She was admitted in the hospital and placed her on tele. Her serial troponin came back as negative. She denied any CP. She still has intermittent chest pressure, more like SOB. - Exam Vitals: Temp Pulse Resp BP Pulse Ox 98.0 F 69 16 104/66 94 10/02/18 11:23 10/02/18 11:23 10/02/18 11:23 10/02/18 11:23 10/02/18 11:23 Exam: Gen: Alert, awake, Oriented to time,place and person Chest: Diminished breath sounds B/L, No wheezing, No crackles, No rales Heart: S1S2+ RRR No murmurs Abd: Soft, NT, BS +, No organomegaly Ext: No edema, pulses are palpable, No calf tenderness Neuro : No acute focal neuro deficits noticed Skin: No rash. - Assessment and Plan (1) Chest pain Current Visit: Yes Status: Acute Assessment and Plan: She denied any active CP now her serial troponin were negative Her EKG showed some non specific ST T changes She did have normal stress test in 2017 had normal stress echo in 2018 Since she is high risk for ACS,ordered nuclear stress test due to her high BMI she needs 2 days stress test cont ASA, Coreg and Statin Her Echo showed LVEF 60-65%, mild LV diastolic dysfunction, asymmetric basal se ptal hypertrophy (2) SOB (shortness of breath) Current Visit: Yes Status: Acute Assessment and Plan: Mostly due to anxiety No signs of volume overload Reviewed 2 D Echo she does have chronic diastolic CHF - not in exacerbation now Since she works at [employer] where they have Legionella out break, checked for Legionella which came back as negative (3) Anxiety Current Visit: Yes Status: Chronic Assessment and Plan: on Ativan PRN (4) HLD (hyperlipidemia) Current Visit: Yes Status: Chronic Assessment and Plan: cont home med Lipitor (5) Hypertension Current Visit: Yes Status: Chronic Assessment and Plan: well controlled today cont current regimen (6) GERD (gastroesophageal reflux disease) Current Visit: No Status: Chronic Assessment and Plan: on PPI - Time Spent with Patient Total time spent is greater than 50% in coordination of care (as documented) at patient's floor/unit and/or counseling patient: Internal Medicine: Result - Labs CBC & Chem 7: 10/01/18 05:18 10/01/18 05:18 - ABG Interpretation ABG results: PT/INR, D-dimer 287 ng/mLFEU (0-500) 09/30/18 22:01 - Impressions Impressions Echocardiogram 10/01/18 00:52 Impressions: LVEF 60-65%. Asymmetric basal septal hypertrophy. Mild left ventricular diastolic dysfunction. Normal right ventricular structure and function. Mild mitral regurgitation. Mild tricuspid regurgitation. No pulmonary hypertension. Left Ventricular Wall Motion: Rest Echo Findings All wall segments showed normal motion. Findings: Study Quality * Technically adequate exam. ECG Findings * Normal sinus rhythm. Left Ventricle * LVEF 60-65%. * Asymmetric basal septal hypertrophy. * Mild left ventricular diastolic dysfunction. Right Ventricle * Normal right ventricular structure and function. Left Atrium * Moderately dilated left atrium. Right Atrium * Normal right atrial size. Aortic Valve * Trileaflet aortic valve. * No aortic stenosis. Mitral Valve * Normal mitral valve structure. * No mitral stenosis. * Mild mitral regurgitation. Tricuspid Valve * Tricuspid valve not well visualized. * Mild tricuspid regurgitation. * Estimated RA pressure is 3 mmHg. * Estimated RVSP is 26 mmHg. * No pulmonary hypertension. Pulmonic Valve * Pulmonic valve is not well visualized. * No pulmonic stenosis. * No pulmonic regurgitation. Pulmonary Artery * Pulmonary artery not well visualized. Aorta * Normally sized aortic root. Pericardium * There is no pericardial effusion present. Interatrial Septum * No evidence of PFO by color Doppler. IVC * The IVC is not dilated. * < 50% respiratory change. Consult Discharge Plan - Plan Referrals: John Gonsales MD [Primary Care Provider] - (Appointment needed within 10 days ) (1) Chest pain Qualifiers: Chest pain type: unspecified Qualified Code(s): R07.9 - Chest pain, unspecified (4) HLD (hyperlipidemia) Qualifiers: Hyperlipidemia type: unspecified Qualified Code(s): E78.5 - Hyperlipidemia, unspecified (5) Hypertension Qualifiers: Hypertension type: essential hypertension Qualified Code(s): I10 - Essential (primary) hypertension (6) GERD (gastroesophageal reflux disease) Qualifiers: Esophagitis presence: without esophagitis Qualified Code(s): K21.9 - Gastro- esophageal reflux disease without esophagitis
--- NOTE | 2018-10-02 15:48 | Electrocardiograph Report ---
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
[2018-10-02] MEDS: ARIPiprazole 2 MG TABLET PO SCH (20:06)
[2018-10-02] MEDS ORDERED: Levalbuterol Neb 1.25 MG/3 ML IH PRN (20:14)
[2018-10-02] MEDS: Acetaminophen 325 MG TABLET PO PRN (22:14)
[2018-10-03] MEDS: *HR* Heparin 5,000 UNIT/ML VIAL SQ SCH (06:12)
[2018-10-03] MEDS: cloNIDine HCl 0.1 MG TABLET PO SCH (08:03)
[2018-10-03] MEDS: Furosemide 40 MG TABLET PO SCH (08:03)
[2018-10-03] MEDS: Losartan/HCTZ 50-12.5 TABLET PO SCH (08:03)
[2018-10-03] MEDS: FLUoxetine 20 MG CAPSULE PO SCH (08:03)
[2018-10-03 11:43] VITALS: BP 146/83
--- NOTE | 2018-10-03 13:23 | Discharge Summary ---
- NOTES TO OUTPATIENT PROVIDER Notes to Outpatient Provider: Presented with shortness of breath with chest pain and underwent stress test which was negative for ischemia or infarct-elevated blood pressure-continue with home medications advised to monitor blood pressure home Orders not resulted at time of discharge: Pending orders 10/01/18 13:27 NM mandeep perf SPECT multi [NM] Routine Date of Encounter: 10/03/18 Time of Encounter: 13:19 - Discharge Diagnosis (1) Hypertension Priority: Secondary Status: Chronic Qualifiers: Hypertension type: essential hypertension Qualified Code(s): I10 - Essential (primary) hypertension (2) Anxiety Priority: Secondary Status: Chronic (3) GERD (gastroesophageal reflux disease) Priority: Secondary Status: Chronic Qualifiers: Esophagitis presence: without esophagitis Qualified Code(s): K21.9 - Gastro-esophageal reflux disease without esophagitis (4) Chest pain Priority: Primary Status: Acute Qualifiers: Chest pain type: unspecified Qualified Code(s): R07.9 - Chest pain, unspecified (5) HLD (hyperlipidemia) Priority: Secondary Status: Chronic Qualifiers: Hyperlipidemia type: unspecified Qualified Code(s): E78.5 - Hyperlipidemia, unspecified (6) SOB (shortness of breath) Priority: Secondary Status: Acute Hospital course: Ms. Granger is a 58 year old female astragal history of hypertension hypothyroid hyperlipidemia presented to [facility] ED with complaints of intermittent dyspnea as well as intermittent chest pain with mild nausea history of poorly controlled blood pressure. Upon presentation she did have a significantly elevated blood pressure and was given hydralazine which did improve her blood pressure lab work was unremarkable and troponins were negative 3 chest x-ray with no acute process EKG with normal sinus rhythm and no ischemia. Cardiac echo was completed which did show LVEF is 6065% asymmetric basal septal hypertrophy mild left ventricular diastolic dysfunction normal right ventricular structure and function mild mitral regurgitation and mild tricuspid regurgitation no pulmonary hypertension-she underwent a nuclear stress test which was negative for any ischemia or infarct. Advised patient to monitor blood pressure closely at home and to follow-up with primary care provider. Currently patient blood pressure is controlled and her vital signs are stable she is ready for discharge at this time. - Time Spent with Patient Total time spent providing and/or coordinating discharge services: - Discharge Medications Prescriptions: Continued Levothyroxine [Synthroid] 88 mcg PO QAM Furosemide [Lasix] 40 mg PO DAILY Loratadine [Claritin] 10 mg PO DAILY ARIPiprazole [Abilify] 2 mg PO HS Potassium Chloride [K-Tab ER] 20 meq PO DAILY Pantoprazole Sodium [Protonix] 40 mg PO DAILY Carvedilol 12.5 - 25 mg PO BID Losartan/Hydrochlorothiazide [Hyzaar 100-25 Tablet] 1 tab PO DAILY cloNIDine HCl [CloNIDine HCl] 0.1 mg PO BID PRN PRN Reason: Blood Pressure - High Albuterol Sulfate [Ventolin Hfa] 2 puff IH Q6H PRN PRN Reason: Shortness Of Breath Atorvastatin Calcium [Lipitor] 20 mg PO HS FLUoxetine HCl [Fluoxetine HCl] 60 mg PO QAM Fluticasone Propionate Nasal [Flonase] 2 spray NS DAILY Gabapentin [Neurontin] 300 mg PO HS Meloxicam 15 mg PO DAILY Naltrexone HCl/Bupropion HCl [Contrave ER 8-90 mg Tablet] 2 tab PO BID No Action Non-Formulary Medication 1 tab PO DAILY Home Medications: ARIPiprazole [Abilify] 2 mg PO HS 06/06/16 [History] Furosemide [Lasix] 40 mg PO DAILY 06/06/16 [History] Levothyroxine [Synthroid] 88 mcg PO QAM 06/06/16 [History] Loratadine [Claritin] 10 mg PO DAILY 06/06/16 [History] Pantoprazole Sodium [Protonix] 40 mg PO DAILY 06/06/16 [History] Potassium Chloride [K-Tab ER] 20 meq PO DAILY 06/06/16 [History] Carvedilol 12.5 - 25 mg PO BID 01/30/17 [History] Losartan/Hydrochlorothiazide [Hyzaar 100-25 Tablet] 1 tab PO DAILY 01/30/17 [History] cloNIDine HCl [CloNIDine HCl] 0.1 mg PO BID PRN 09/30/18 [History] Albuterol Sulfate [Ventolin Hfa] 2 puff IH Q6H PRN 10/02/18 [History] Atorvastatin Calcium [Lipitor] 20 mg PO HS 10/02/18 [History] FLUoxetine HCl [Fluoxetine HCl] 60 mg PO QAM 10/02/18 [History] Fluticasone Propionate Nasal [Flonase] 2 spray NS DAILY 10/02/18 [History] Gabapentin [Neurontin] 300 mg PO HS 10/02/18 [History] Meloxicam 15 mg PO DAILY 10/02/18 [History] Naltrexone HCl/Bupropion HCl [Contrave ER 8-90 mg Tablet] 2 tab PO BID 10/02/18 [History] Non-Formulary Medication 1 tab PO DAILY 10/02/18 [History] Allergies/Adverse Reactions: Allergy/AdvReac Type Severity Reaction Status Date / Time azithromycin [From Zithromax] Allergy HIVES, ITCH Verified 10/02/18 13:16 Penicillins [PCN] Allergy HIVES, ITCH Verified 10/02/18 13:16 tetracycline [Tetracycline] Allergy HIVES, ITCH Verified 10/02/18 13:16 Date of admission: 09/30/18 23:46 Primary care physician: John Gonsales MD Discharging clinician: Cee Walsh Anticipated date of discharge: 10/03/18 - Constitutional Vitals: Temp Pulse Resp BP Pulse Ox 98.2 F 64 14 146/83 95 10/03/18 11:41 10/03/18 11:41 10/03/18 11:41 10/03/18 11:41 10/03/18 11:41 Exam: Gen: Alert, awake, Oriented to time,place and person Chest: Diminished breath sounds B/L, No wheezing, No crackles, No rales Heart: S1S2+ RRR No murmurs Abd: Soft, NT, BS +, No organomegaly Ext: No edema, pulses are palpable, No calf tenderness Neuro : No acute focal neuro deficits noticed Skin: No rash. - Patient Status Disposition: Home, Self-Care Condition: Good Functional capacity at discharge: independent ambulation Overall status at discharge: patient is back to baseline - Discharge Instructions Follow Up With: John Gonsales MD [Primary Care Provider] - (Appointment needed within 10 days ) Forms: ED Satisfaction Letter - Diet and Activity Activity: increase activity as tolerated Diet: low fat, low cholesterol, low salt diet
== END 2018-10-03 14:04 | disposition home or self-care (01) ==
LOC: 3BNU 21:41 → EMEROOARM 21:41 → SUATTDRO 23:46 → 3BNU 10-01 00:16
PROVIDERS: ADMIT Internal Medicine Nephrology; ATTEND Family Medicine